=== PATIENT | female | born 1975 | race American Indian/Alaskan Native ===

== ENCOUNTER 2016-08-04 17:32 | Inpatient (IN) | payer BC, OTHER ==
[2016-08-04 17:48] VITALS: BMI 40.3
[2016-08-04 18:05] LABS: ADD MANUAL DIFF? NO
[2016-08-04 18:10] LABS: VENOUS BLOOD GAS BASE EXCESS -3.6 mmol/L (0.0-2.0)
[2016-08-04 18:11] LABS: BASO # 0.02 K/mm3 (0.0-2.0); BASO % 0.2 % (0.0-3.0); EOS # 0.1 (0.0-0.7); EOS % 1.3 % (1.5-5.0); GRAN # 6.65 (1.4-6.5); GRAN % 73.7 % (50.0-68.0); HEMATOCRIT 34.5 % (36.0-48.0); LYMPH # 1.5 (1.2-3.4); LYMPH % 16.2 % (22.0-35.0); MEAN CELL VOLUME 81.6 fL (80.0-105.0); MEAN CORPUSCULAR HEMOGLOBIN 26.7 pg (25.0-35.0); MEAN CORPUSCULAR HGB CONC 32.8 g/dl (31.0-37.0); MEAN PLATELET VOLUME 10.9 fl (7.0-11.0); MONO # 0.8 (0.1-0.6); MONO % 8.6 % (1.0-6.0); PLATELET COUNT 324 10^3/uL (120.0-450.0); RED CELL DISTRIBUTION WIDTH 14.9 % (11.5-14.5)
[2016-08-04] MEDS ORDERED: Ipratropium 0.02% Inhal Soln (0.5 mg/2.5 ml) UD IH STA (18:15)
[2016-08-04] MEDS ORDERED: Levalbuterol 1.25 MG/3 ML Inhal Soln UD IH STA (18:15)
[2016-08-04] MEDS ORDERED: guaiFENesin 200 mg/10 ml Syrup UD PO STA (18:15)
[2016-08-04] MEDS ORDERED: Sodium Chloride 0.9% 1,000 ML IV STA (18:16)
--- NOTE | 2016-08-04 18:37 | ED PDOC ---
Arrival/HPI - General Chief Complaint: Weakness/Neurological Deficit Time Seen by Provider: 08/04/16 17:33 Historian: Patient - History of Present Illness Narrative History of Present Illness (Text): 08/04/16 18:04 A 41 year old female, whose past medical history includes asthma, hypertension and diabetes is brought in to the emergency department by EMS because of a fever. Patient was at PMD's office and was given Tylenol, Solu-medrol 40 mg IM and sent to the emergency department for further evaluation. Patient reports she had two root canals eight days ago and the next day had a fever of 103. Patient was given Ibuprofen and Amoxicillin by dentist. However, these medications did not alleviate her fever. Patient reports she has a cough, headache, dizziness, vomiting (yellow), shortness of breath, and chest pain but denies diarrhea, dysuria or any other complaints at this time. PMD: Dr. Ta ([place]) Time/Duration: 1 week Symptom Onset: Sudden Symptom Course: Unchanged Activities at Onset: Rest Modifying Factors (Text): Tylenol did not help Context: Other (doctor's office) Associated Symptoms (Text): fever, cough, shortness of breath, vomiting, headache, dizziness Past Medical History - Provider Review Nursing Documentation Reviewed: Yes - Infectious Disease Hx of Infectious Diseases: None - Tetanus Immunization Tetanus Immunization: Unknown - Cardiac Hx Hypertension: Yes - Pulmonary Hx Asthma: Yes - Endocrine/Metabolic Hx Diabetes Mellitus Type 2: Yes - Psychiatric Hx Substance Use: No - Past Surgical History Past Surgical History: No Previous - Suicidal Assessment Feels Threatened In Home Enviroment: No Family/Social History - Physician Review Nursing Documentation Reviewed: Yes Family/Social History: No Known Family HX Smoking Status: Never Smoked Hx Alcohol Use: No Hx Substance Use: No Hx Substance Use Treatment: No Allergies/Home Meds Allergies/Adverse Reactions: Allergies No Known Allergies Allergy (Verified 08/04/16 17:48) Home Medications: Home Meds Medication Instructions Recorded Confirmed Amoxicillin/Clavulanate Pota 1 tab PO DAILY 08/12/14 08/12/14 [Augmentin 875 mg-125 mg] Insulin Aspart Mix [novolog Mix 1 unit SC TID 08/12/14 08/12/14 70/30] Insulin Glargine,Hum.rec.anlog 1 unit SC DAILY 08/12/14 08/12/14 [Lantus] Review of Systems - Physician Review All systems were reviewed & negative as marked: Yes - Review of Systems Constitutional: Fevers Respiratory: SOB, Cough Cardiovascular: Chest Pain Gastrointestinal: Vomiting. absent: Diarrhea Genitourinary Female: absent: Dysuria Skin: absent: Rash Neurological: Headache, Dizziness Physical Exam Vital Signs Reviewed: Yes Vital Signs Temp Pulse Resp BP Pulse Ox 08/04/16 22:25 99.3 F 08/04/16 20:14 85 24 157/88 H 95 08/04/16 18:18 100.9 F H 86 16 178/93 H 100 08/04/16 18:01 100.9 F H 87 18 179/101 H 100 Temperature: Febrile Blood Pressure: Hypertensive Pulse: Regular Respiratory Rate: Normal Appearance: Positive for: Well-Appearing, Non-Toxic, Comfortable Pain Distress: None Mental Status: Positive for: Alert and Oriented X 3 - Systems Exam Head: Present: Atraumatic, Normocephalic Pupils: Present: PERRL Conjunctiva: Present: Normal Mouth: Present: Moist Mucous Membranes Pharnyx: Present: Normal. No: ERYTHEMA, EXUDATE Neck: Present: Normal Range of Motion. No: Meningeal Signs Respiratory/Chest: Present: Rales (bibasilar R > L lungs). No: Respiratory Distress, Wheezes Cardiovascular: Present: Regular Rate and Rhythm, Normal S1, S2. No: Murmurs Abdomen: Present: Normal Bowel Sounds. No: Tenderness, Distention, Peritoneal Signs Upper Extremity: Present: Normal Inspection. No: Cyanosis, Edema Lower Extremity: Present: Normal Inspection. No: Edema Neurological: Present: GCS=15, CN II-XII Intact, Speech Normal Skin: Present: Warm, Dry, Normal Color. No: Rashes Psychiatric: Present: Alert, Oriented x 3, Normal Insight, Normal Concentration Medical Decision Making ED Course and Treatment: 08/04/16 18:34 Impression: 41 year old female with fever, weakness and chest pain. Differential Diagnosis include but are not limited to: PNA vs. viral etiology vs. endocarditis vs. PE Plan: -- EKG -- Chest Xray -- Urinalysis -- Labs -- Atrovent, Pepcid, Robitussin, Solu-Medrol, IV fluids, Xopenex -- Reassess and disposition Prior Visits: Notes and results from previous visits were reviewed. On 08/12/14 patient came in complaining of sore throat and earache discomfort. Patient's diagnosis was tonsillitis, otitis media and prescribed to take Acetaminophen, Zithromax Z-deja and to follow up with doctor. Progress Notes: EKG: Ordered, reviewed, and independently interpreted the EKG. Rate : 90 BPM Rhythm : NSR Interpretation : Left axis deviation; normal intervals; normal axis; no ST/T changes Comparison : No previous EKG for comparison. Chest Xray: Possible Right lower lobe infiltrate. 08/04/16 22:[address] results: IMPRESSION: 1. Moderate right lower lobe infiltrate with areas of focal consolidation consistent with pneumonia. There is also mild patchy infiltrate in the right middle lobe and left lower lobe consistent with additional areas of pneumonia. 2. Borderline mediastinal nodes which are nonspecific but may be reactive. 3. Lap band in position. 4. Cholelithiasis. 5. Motion artifact with degradation of peripheral pulmonary artery imaging. No gross central pulmonary embolism is identified. Peripheral emboli are difficult to entirely exclude. Patient's findings are consistent with pneumonia; she was already on amoxicillin outpatient, so has failed therapy. Given multilobar, will treat with vanco and add zosyn for some anaerobic coverage given dental procedure and add levaquin for possible atypical coverage. Her lactic acid was normal and hemodynamically stable with only 1/4 SIRS criteria so does not fit code sepsis criteria. 08/04/16 23:01 Patient is insured and may be admitted to on-call physician, Dr. Rodríguez; he is being covered by Dr. Gibson, whom we have not been able to reach despite multiple calls. Per answering service, they tried calling home and cell and unable to reach - will admit to the hospitalist service; discussed with Dr. Dominguez. - Lab Interpretations Lab Results: 08/04/16 18:00 08/04/16 18:41 Lab Results 08/04/16 18:41: PT 10.4, INR 0.96, APTT 27.4, D-Dimer, Quantitative 0.78 H, Sodium 136, Potassium 4.5, Chloride 107, Carbon Dioxide 22, Anion Gap 12, BUN 17 , Creatinine 1.2, Est GFR ( Amer) > 60, Est GFR (Non-Af Amer) 50, Random Glucose 191 H, Calcium 8.7, Magnesium 1.8, Total Bilirubin 0.5, AST 29, ALT 51, Alkaline Phosphatase 126, Lactate Dehydrogenase 577, Total Creatine Kinase 214, Troponin I < 0.01, NT-Pro-B Natriuret Pep 340, Total Protein 6.7, Albumin 2.9 L , Globulin 3.8, Albumin/Globulin Ratio 0.8 L, Lipase 178, Influenza Typ A,B (EIA ) Negative for flu a/b 08/04/16 18:40: Urine Color Yellow, Urine Appearance Clear, Urine pH 6.0, Ur Specific Chase 1.025, Urine Protein >=300 H, Urine Glucose (UA) 250 H, Urine Ketones Negative, Urine Blood Moderate H, Urine Nitrate Negative, Urine Bilirubin Negative, Urine Urobilinogen 0.2, Ur Leukocyte Esterase Negative, Urine RBC 1 - 3, Urine WBC 1 - 3, Ur Epithelial Cells 10 - 12, Urine HCG, Qual Negative, Ur L.pneumophila Ag Negative 08/04/16 18:05: pO2 51, VBG pH 7.30 L, VBG pCO2 47.0, VBG HCO3 23.1, VBG Total CO2 24.5, VBG O2 Sat (Calc) 87.8 H, VBG Base Excess -3.6 L, VBG Potassium 5.0, Glucose 201 H, Lactate 1.0, FiO2 21.0, Sodium 137.0, Chloride 108.0 H, Venous Blood Potassium 5.0 08/04/16 18:00: WBC 9.0, RBC 4.23, Hgb 11.3 L, Hct 34.5 L, MCV 81.6, MCH 26.7, MCHC 32.8, RDW 14.9 H, Plt Count 324, MPV 10.9, Gran % 73.7 H, Lymph % (Auto) 16.2 L, Mcclain % (Auto) 8.6 H, Eos % (Auto) 1.3 L, Baso % (Auto) 0.2, Gran # 6.65 H, Lymph # 1.5, Mcclain # 0.8 H, Eos # 0.1, Baso # 0.02 I have reviewed the lab results: Yes - RAD Interpretation Radiology Orders: 08/04/16 18:13 CHEST PORTABLE [RAD] Stat 08/04/16 19:13 ANGIO CHEST PE PROTOCOL [CT] Stat - EKG Interpretation Interpreted by ED Physician: Yes Type: 12 lead EKG - Medication Orders Current Medication Orders: Levofloxacin/Dextrose (Levaquin 750mg) 150 mls @ 100 mls/hr IVPB STAT STA Stop: 08/04/16 23:59 Vancomycin HCl (Vancomycin 1gm) 250 mls @ 133.333 mls/hr IVPB STAT STA PRN Reason: Protocol Stop: 08/05/16 00:23 Discontinued Medications Famotidine (Pepcid) 20 mg IVP STAT STA Stop: 08/04/16 18:16 Last Admin: 08/04/16 18:57 Dose: 20 MG IVP Administration Document 08/04/16 18:57 [facility] (Rec: 08/04/16 18:57 [email or web address]) Charges for Administration # of IVP Administrations 1 Guaifenesin (Robitussin) 400 mg PO ONCE STA Stop: 08/04/16 18:16 Last Admin: 08/04/16 18:56 Dose: 400 MG Sodium Chloride (Sodium Chloride 0.9%) 1,000 mls @ 999 mls/hr IV .Q1H1M STA Stop: 08/04/16 19:16 Last Admin: 08/04/16 18:33 Dose: 999 MLS/HR eMAR Start Stop Document 08/04/16 18:33 LM ([facility]04[facility]16 [id number] Intravenous Solution Start Date 08/04/16 Start Time 18:10 End Date 08/04/16 End time 19:10 Total Infusion Time 60 Ceftriaxone Sodium (Rocephin 1 Gram Ivpb) 100 mls @ 200 mls/hr IV ONCE STA PRN Reason: Protocol Stop: 08/04/16 21:45 Last Admin: 08/04/16 21:53 Dose: 200 MLS/HR eMAR Start Stop Document 08/04/16 21:53 MR (Rec: 08/04/16 21:53 [id number]) Intravenous Solution Start Date 08/04/16 Start Time 21:53 End Date 08/04/16 End time 22:23 Total Infusion Time 30 Piperacillin Sod/Tazobactam Sod (Zosyn 3.375 In Ns 100ml) 100 mls @ 200 mls/hr IVPB STAT STA PRN Reason: Protocol Stop: 08/04/16 22:59 Iodixanol (Visipaque 320 Mg/Ml 100 Ml) Confirm Administered Dose 100 ml IV .STK- MED ONE Stop: 08/04/16 20:20 Ipratropium [place] (Atrovent) 0.5 mg IH STAT STA Stop: 08/04/16 18:16 Last Admin: 08/04/16 18:57 Dose: 0.5 MG Levalbuterol HCl (Xopenex) 1.25 mg IH STAT STA Stop: 08/04/16 18:16 Last Admin: 08/04/16 18:57 Dose: 1.25 MG Methylprednisolone (Solu-Medrol) 125 mg IVP STAT STA Stop: 08/04/16 18:15 Last Admin: 08/04/16 18:57 Dose: 125 MG IVP Administration Document 08/04/16 18:57 [facility] (Rec: 08/04/16 18:57 [email or web address]) Charges for Administration # of IVP Administrations 1 - Scribe Statement The provider has reviewed the documentation as recorded by the Scribe Rafael Joiner All medical record entries made by the Scribe were at my direction and personally dictated by me. I have reviewed the chart and agree that the record accurately reflects my personal performance of the history, physical exam, medical decision making, and the department course for this patient. I have also personally directed, reviewed, and agree with the discharge instructions and disposition. Disposition/Present on Arrival - Present on Arrival Any Indicators Present on Arrival: No History of DVT/PE: No History of Uncontrolled Diabetes: No Urinary Catheter: No History of Decub. Ulcer: No History Surgical Site Infection Following: None - Disposition Have Diagnosis and Disposition been Completed?: Yes Diagnosis: Pneumonia Disposition: HOSPITALIZED Disposition Time: 22:30 Patient Plan: Admission Condition: FAIR
[2016-08-04 18:57] LABS: ALB/GLOB RATIO 0.8 (1.1-1.8); ALKALINE PHOSPHATASE 126 U/L (38-133); ALT/SGPT 51 U/L (7-56); AST/SGOT 29 U/L (15-39); BILIRUBIN,TOTAL 0.5 mg/dL (0.2-1.3); BLOOD UREA NITROGEN 17 mg/dL (7-21); CALCIUM 8.7 mg/dL (8.4-10.5); CARBON DIOXIDE 22 mmol/L (21-33); CHLORIDE 107 mmol/L (98-107); GFR AFRICAN-AMERICAN > 60; GLUCOSE,RANDOM 191 mg/dL (70-110); LIPASE 178 U/L (23-300); MAGNESIUM 1.8 mg/dL (1.7-2.2); POTASSIUM 4.5 mmol/L (3.6-5.0); SODIUM 136 mmol/L (132-148); TOTAL PROTEIN 6.7 g/dL (5.8-8.3)
[2016-08-04 19:05] LABS: URINE BILIRUBIN NEGATIVE (NEGATIVE); URINE BLOOD MODERATE (NEGATIVE); URINE GLUCOSE (UA) 250 mg/dL (NEGATIVE); URINE KETONE NEGATIVE (NEGATIVE); URINE LEUKOCYTE ESTERASE NEGATIVE Leu/uL (NEGATIVE); URINE PROTEIN >=300 mg/dL (<30 mg/dL); URINE UROBILINOGEN 0.2 E.U./dL (<1 E.U./dL)
[2016-08-04 19:07] LABS: INR 0.96 (0.93-1.08); PARTIAL THROMBOPLASTIN TIME 27.4 Seconds (23.7-30.8)
[2016-08-04 19:09] LABS: D DIMER 0.78 mg/L FEU (0-0.50)
[2016-08-04 19:09] LABS: URINE APPEARANCE CLEAR (CLEAR); URINE COLOR YELLOW (YELLOW)
[2016-08-04 19:12] LABS: TROPONIN I < 0.01 ng/mL
[2016-08-04] MEDS ORDERED: Iodixanol 320 MG/ML 100 ML BOTTLE IV ONE (20:19)
[2016-08-04] MEDS ORDERED: cefTRIAXone 1 gm 100 ML IV STA (21:16)
[2016-08-04] MEDS ORDERED: Azithromycin 500MG/NS 250ml 250 ML IVPB STA (21:16)
[2016-08-04] MEDS ORDERED: Piperacillin/Tazobact 3.375 gm 100 ML IVPB STA (22:30)
[2016-08-04] MEDS ORDERED: Vancomycin 1gm in NS 250ml 250 ML IVPB STA (22:31)
--- NOTE | 2016-08-05 03:07 | CP.PCM.HP ---
<Tamir Nathan - Last Filed: 08/05/16 02:53> History of Present Illness - History of Present Illness History of Present Illness: 41 F with PMHx of Asthma, HTN, and DM2 presents to [facility] with complaints of a subjective fever, sob, chest discomfort, and lethargy. Pt reports that she was recently at her PCP's office at [facility], not feeling well s/p recent dental procedures. Pt recently had two root canals approximately 8 days ago, was given amoxicillin and ibuprofen by dentist, however reported feeling feverish the following day. Pt reports of having a fever of 103. Pt decided to go to PCP on account of not feeling well. Pt was given tylenol 1000mg and solumedrol 40mg IM and suggested to be evaluated at [facility]. Pt admits to malaise , fever, cough, SOB, headache, chest discomfort described as a tightness and n/ v. Pt denied neruological deficits, weakness, loc, dizziness, blurry vision, sore throat, palpitations, abdominal pains, diarrhea, constipations, rash, dysuria, hematuria, or hematochezia. PMHx: Asthma, HTN, and DM2 PSHx: and gastric bypass SHx: Denied tobacco/etoh/illicit drug abuse. LMP 07/18/16. lives with family Famhx: Noncontributory Meds; Mar reviewed Allergies: NKDA PMD: Dr. Ta ([place]) Present on Admission - Present on Admission Any Indicators Present on Admission: No History of DVT/PE: No History of Uncontrolled Diabetes: No Urinary Catheter: No Decubitus Ulcer Present: No Review of Systems - Review of Systems Review of Systems: as per HPI otherwise negative Past Patient History - Infectious Disease Hx of Infectious Diseases: None - Tetanus Immunizations Tetanus Immunization: Unknown - Past Social History Smoking Status: Never Smoked - CARDIAC Hx Hypertension: Yes - PULMONARY Hx Asthma: Yes - NEUROLOGICAL Hx Neurological Disorder: No - HEENT Hx HEENT Problems: Yes 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 - RENAL Hx Chronic Kidney Disease: No - ENDOCRINE/METABOLIC Hx Diabetes Mellitus Type 2: Yes - HEMATOLOGICAL/ONCOLOGICAL Hx Blood Disorders: No - INTEGUMENTARY Hx Dermatological Problems: No - MUSCULOSKELETAL/RHEUMATOLOGICAL Hx Falls: No - GASTROINTESTINAL Hx Gastrointestinal Disorders: No - GENITOURINARY/GYNECOLOGICAL Hx Genitourinary Disorders: No - PSYCHIATRIC Hx Substance Use: No - SURGICAL HISTORY Hx Surgeries: Yes Hx Gastric Bypass Surgery: Yes Other/Comment: c section Meds Allergies/Adverse Reactions: Allergies Allergy/AdvReac Type Severity Reaction Status Date / Time No Known Allergies Allergy Verified 08/04/16 17:48 Physical Exam - Constitutional Appears: Non-toxic, No Acute Distress - Head Exam Head Exam: ATRAUMATIC, NORMAL INSPECTION, NORMOCEPHALIC - Eye Exam Eye Exam: EOMI, Normal appearance, PERRL Pupil Exam: NORMAL ACCOMODATION, PERRL - ENT Exam ENT Exam: Mucous Membranes Moist, Normal Exam - Expanded ENT Exam Expanded Throat exam: absent: Tonsillar Erythema, Tonsillar Exudate - Neck Exam Neck exam: Positive for: Normal Inspection - Respiratory Exam Respiratory Exam: Decreased Breath Sounds, Rales - Cardiovascular Exam Cardiovascular Exam: REGULAR RHYTHM, +S1, +S2 - GI/Abdominal Exam GI & Abdominal Exam: Normal Bowel Sounds, Soft. absent: Tenderness - Extremities Exam Extremities exam: Positive for: normal inspection - Neurological Exam Neurological exam: Alert, CN II-XII Intact, Normal Gait, Oriented x3, Reflexes Normal - Psychiatric Exam Psychiatric exam: Normal Affect, Normal Mood - Skin Skin Exam: Dry, Intact, Normal Color, Warm Results - Vital Signs Recent Vital Signs: Last Vital Signs Temp 98.1 F 08/04/16 23:04 Pulse 78 08/05/16 02:06 Resp 20 08/04/16 23:04 BP 203/117 H 08/05/16 02:06 Pulse Ox 99 08/05/16 02:06 - Labs Result Diagrams: 08/04/16 18:00 08/04/16 18:41 Assessment & Plan - Assessment and Plan (Free Text) Assessment: 41 F with PMHx of Asthma, HTN, and DM2 presents to [facility] with complaints of a subjective fever, sob, and lethargy. Pt found to have RLL PNA, failed outpt treatment with amoxicillin, admitted to remote tele. 1. CAP - CT Chest: Moderate right lower lobe infiltrate with areas of focal consolidation consistent with pneumonia. There is also mild patchy infiltrate in the right middle lobe and left lower lobe consistent with additional areas of pneumonia. No gross central pulmonary embolism is identified. - CXR: RLL infiltrate - febrile on admission - Vancomycin and zosyn - IV solumedrol 30mg q12, robitussin, nebs - ID consulted, Dr. Love - Lora consulted, Dr. Farooq 2. HTN - Clonidine 0.2mg sta, will reassess - EKG: NSR @[address] changes - Continue to monitor 3. DM2 - Consistent carb diet - Accuchecks - ISS 4. GI ppx 5. DVT ppx Seen reviewed and discussed with attending <Naina Dominguez - Last Filed: 08/05/16 04:16> Results - Vital Signs Recent Vital Signs: Last Vital Signs Temp 98.1 F 08/04/16 23:04 Pulse 78 08/05/16 02:30 Resp 20 08/04/16 23:04 BP 203/117 H 08/05/16 02:06 Pulse Ox 99 08/05/16 02:06 - Labs Result Diagrams: 08/04/16 18:00 08/04/16 18:41 Attending/Attestation - Attestation I have personally seen and examined this patient.: Yes I have fully participated in the care of the patient.: Yes I have reviewed all pertinent clinical information: Yes Notes (Text): 08/05/16 03:43
[2016-08-05] MEDS: Piperacillin/Tazobact 3.375 gm 100 ML IVPB SCH ×2 (05:57→12:14)
[2016-08-05 07:30] LABS: ADD MANUAL DIFF? NO
[2016-08-05 07:35] LABS: BASO # 0.01 K/mm3 (0.0-2.0); BASO % 0.1 % (0.0-3.0); GRAN # 6.97 (1.4-6.5); GRAN % 87.7 % (50.0-68.0); HEMATOCRIT 34.3 % (36.0-48.0); LYMPH # 0.8 (1.2-3.4); LYMPH % 10.6 % (22.0-35.0); MEAN CELL VOLUME 80.9 fL (80.0-105.0); MEAN CORPUSCULAR HEMOGLOBIN 25.9 pg (25.0-35.0); MEAN CORPUSCULAR HGB CONC 32.1 g/dl (31.0-37.0); MEAN PLATELET VOLUME 11.2 fl (7.0-11.0); MONO # 0.1 (0.1-0.6); MONO % 1.6 % (1.0-6.0); PLATELET COUNT 314 10^3/uL (120.0-450.0); RED CELL DISTRIBUTION WIDTH 14.8 % (11.5-14.5)
[2016-08-05] MEDS: Insulin Reg-HIGH-Coverage SC SCH ×5 (08:15→21:26)
--- NOTE | 2016-08-05 08:26 | CT ---
PROCEDURE: CT Chest with contrast (Pulmonary Angiogram) HISTORY: cp, fever - r/o PE COMPARISON: None available. TECHNIQUE: Axial computed tomography images were obtained of the chest in the pulmonary arterial phase of enhancement. Coronal and sagittal reformatted images were created and reviewed. Intravenous contrast dose: Visipaque 321 100 mL Radiation dose: Total exam DLP = 824 mGy-cm. This CT exam was performed using one or more of the following dose reduction techniques: Automated exposure control, adjustment of the mA and/or kV according to patient size, and/or use of iterative reconstruction technique. FINDINGS: PULMONARY ARTERIES: . No central pulmonary embolism. The exam is limited regarding assessing for far peripheral subsegmental pulmonary arterial tiny emboli in this patient with large body habitus AORTA: No acute findings. No thoracic aortic aneurysm. LUNGS: Right lower lobe posterior basal consolidation. More patchy consolidation/infiltrates also in the right lower lobe. Smaller dependent left lower lobe patchy infiltrates and/or lessen the dependent atelectatic changes PLEURAL SPACES: Unremarkable. No effusion or pneuomothorax. HEART: Unremarkable. No cardiomegaly. No significant pericardial effusion. LYMPH NODES: No lymphadenopathy. BONES, CHEST WALL: Unremarkable. No fracture or destructive lesion OTHER FINDINGS: Gallstone and gallbladder. Apparent Lap band- bariatric treatment. 1 cm low-density adrenal limb nodularity- a small incidental left adrenal cyst enter versus a benign adenoma is most likely. IMPRESSION: No central pulmonary emboli. Bibasilar infiltrates right more extensive than left. Both affect each lower lobe. Follow-up recommended Gallstone in gallbladder. No gross dilated ducts. Incidental 1 cm left adrenal limb benign-appearing nodule Lap band
[2016-08-05] MEDS: Enoxaparin 40 mg Syringe SC SCH (09:05)
[2016-08-05] MEDS: Linezolid 600 mg in D5W 300 ml 300 ML IVPB SCH ×2 (09:05→21:27)
[2016-08-05 09:06] LABS: ALB/GLOB RATIO 0.7 (1.1-1.8); ALKALINE PHOSPHATASE 129 U/L (38-133); ALT/SGPT 34 U/L (7-56); AST/SGOT 29 U/L (15-39); BILIRUBIN,TOTAL 0.4 mg/dL (0.2-1.3); BLOOD UREA NITROGEN 18 mg/dL (7-21); CALCIUM 8.4 mg/dL (8.4-10.5); CARBON DIOXIDE 19 mmol/L (21-33); CHLORIDE 107 mmol/L (95-110); GFR AFRICAN-AMERICAN > 60; POTASSIUM 5.5 mmol/L (3.6-5.0); SODIUM 135 mmol/L (132-148)
--- NOTE | 2016-08-05 09:06 | HP ---
I saw the patient this morning in her room, resting in bed. She has a little shortness of breath and she is coughing at this time. She comes in with a history of being a 41-year-old -[place] f emale who had a week of coughing, congestion, status post root canal, was on antibiotics at home, als o was given Solu-Medrol at home by her doctor, did not get better, got worse with antibiotics and Valerie u-Medrol, came to the Emergency Room. Coughing, congestion and fevers as high as 103. She is also s hort of breath. PAST MEDICAL HISTORY: Asthma, hypertension, diabetes. She had fever, shortness of breath. She looks septic to look at her in bed. FAMILY HISTORY: She has hypertension and diabetes in the family. SOCIAL HISTORY: No smoking, no alcohol, no drugs. ALLERGIES: No known drug allergy. HOME MEDICATIONS: She was on Augmentin, insulin, Edarbi, atenolol. She was given IV antibiotics in the Emergency Room. REVIEW OF SYSTEMS: No change in vision, no change in hearing, no sore throat. No neck pain. She is short of breath. She is coughing up phlegm. It is green and yellow. There is some chest pain from time to time with all the coughing. She had vomited a few times. No diarrhea. No abdominal pain. There is bone pain in her legs and her arms. No rashes. A little bit of headache and dizziness. S he is just not feeling well. PHYSICAL EXAMINATION: VITAL SIGNS: She had a 100.9 temp, 87 pulse, 24 respiratory rate, 179/101 blood pressure. It was as high as 201/120. Now, it is down a little bit. I am going to put her on Catapres. O2 sat 100% on room air. GENERAL: She is lying in bed. She is morbidly obese. She is well appearing, but she is toxic. She is talking to me a little bit better since oxygen is on, alert and oriented x 3. HEENT: Head is atraumatic, normocephalic. Pupils equal, reactive to light and accommodation. Extra ocular muscles are intact. Throat is dry, no erythema. NECK: Supple, no JVD. HEART: Regular rate. LUNGS: Have decreased breath sounds bilaterally. There are some rales on the right worse than left with the congestion. It changes with cough. ABDOMEN: Soft, morbidly obese, nontender, no guarding, no rebound, no CVA tenderness. EXTREMITIES: Have no edema. SKIN: For the most part is intact. Warm and dry. NEUROLOGIC: GCS is 15. Cranial nerves II-XII grossly intact. Normal speech. Alert and oriented x 3, a little bit distressed. She had multiple issues. On chest x-ray, it is possible right lower lobe pneumonia. There is also a CAT scan pending of the chest. She was given numerous IV antibiotics in the Emergency Room from [facility] yn to vancomycin, IV Solu-Medrol, Rocephin, levofloxacin. Right now, she is on Zyvox, Zosyn, Solu-Me drol. I put her on Catapres for the elevated blood pressure. She has an 8 white count, 11 hemoglobin, 34.3 hematocrit with 314 platelets. INR 0.96. Sodium 136, potassium 4.5, BUN 17, creatinine 1.2, GFR is 50, sugar is 191. We will get her on coverage. Calciu m is 8.7, magnesium 1.8, total bili is 0.5, AST is 29, ALT is 51, alk phos 126. Troponin is less connie n 0.01. BNP is 340. Total protein 6.7, albumin is 2.9, lipase is 178. Urine is moderate blood, neg ative for . Negative for flu and legionella. I am waiting for the CAT scan of the chest to come back from the radiologist. There is a consult wit h infectious disease and pulmonary. She is here with probable pneumonia, failed outpatient with Augmentin and steroids from her doctor. She will have her blood pressure watched closely. We will check her labs tomorrow. Hopefully, she w ill improve. The patient is here for pneumonia, elevated temperature, failed outpatient treatment, diabetes, hyper tension. Yaw Rodríguez DO cc: [id number] TT: 08/05/2016 09:05:26 en
[2016-08-05 09:08] LABS: GLUCOSE,RANDOM 327 mg/dL (70-110)
--- NOTE | 2016-08-05 09:28 | CON ---
DATE: 08/05/2016 PULMONARY CONSULTATION Room 364, bed 1. HISTORY OF PRESENT ILLNESS: The patient is a 41-year-old woman who came to the hospital complaining of shortness of breath. She had some chest pain as well. She has a longstanding history of bronchial asthma. The last hospitalization for this condition was 6 years ago. She also has a past history of hypertension , diabetes mellitus type 2, morbid obesity, and section. On further questioning, the patient has no additional complaints at this time. She was seen by dentist recently and had 2 extractions. She was given antibiotics and Advil, but she developed a fever as high as 103. When presenting to the Emergency Room, it was down to 102. She felt warm, diaphoretic, and short of breath. She was wheezing according to her history. PAST HISTORY: As described above. SOCIAL HISTORY: She never smoked. She never used alcohol or drugs. She lives with her child. There is no occupational exposure. There is no travel history. There is no history of a DNR. FAMILY HISTORY: Both parents have asthma. Her one child is free of respiratory conditions. HOME MEDICATIONS: Unclear. She does not recall these, and I cannot find them in the history. ALLERGIES: She has no known allergies. The patient has not been worked up for her sleep apnea. Further questioning will be done once the patient is feeling a bit better, but she is certainly a candidate for SUSHANT evaluation. The patient has had GI surgery. Whether this was a lap band or a partial gastrectomy is not clear. Gastric sleeve is also a possibility, but records are not available yet at this time. REVIEW OF SYSTEMS: Complete review of systems has been done. The patient has peripheral neuropathy. She has nystagmus in her eye. She does not complain of other sequelae of her diabetes mellitus. There are no psychiatric complaints. Her blood pressure remains under control. However, she does have some glaucoma also - the type of which is not clear at this time. She has frequent headaches and back pain. All other systems negative PHYSICAL EXAMINATION: GENERAL: The patient is comfortable at rest in no acute distress. VITAL SIGNS: Stable with a blood pressure of 130/70, heart rate 70, respiratory rate 18. Blood pressure 150/60, pulse ox 100% on room air. HEENT: Normocephalic, atraumatic. Pupils PERRLA. EOMs full. Conjunctivae pink. Mouth moist. Pharynx normal. NECK: Supple. No JVD, no lymphadenopathy, no bruit, no mass. HEART: Regular rhythm, S1, S2 without murmur, gallop, or rub. ABDOMEN: Soft. Bowel sounds normoactive without mass, guarding, or rebound. EXTREMITIES: Reveal no clubbing, cyanosis, or edema. There is no Homans' sign. NEUROLOGIC: Awake, alert, oriented. No particular other abnormalities noted. No localizing signs. LYMPHATICS: Lymphadenopathy is not present in the supraclavicular notch nor in the cervical, inguinal, or axillary areas. No additional physical findings are noted. LABORATORY STUDIES: 1. Chest x-ray. The x-ray shows bilateral basilar infiltrates. There is no significant hyperinflation or flattening of the diaphragms. 2. Laboratory studies: Hematology shows a white count of 9, hemoglobin of 11.3 , hematocrit 34.5, platelet count 324,000. Coagulation is normal. D-dimer is 0.78. Blood gas: pH 7.30, pCO2 of 47, pO2 of 51 showing a respiratory acidosis with hypoxemia. Chemistry studies are normal except for a glucose of 191. BNP was 340, which is normal. Urine shows protein and glucose with moderate amount of blood. 3. EKG: Sinus tach, nonspecific ST-T wave changes. CLINICAL DIAGNOSES AND DIFFERENTIAL: 1. Chronic bronchial asthma. Morbid obesity. 2. Bronchopneumonia (bilateral). 3. Acute bronchospasm 4. Obesity 5. Status post gastrectomy 6. Upper mouth infection. 7. Diabetes mellitus. PLAN: The patient requires vigorous bronchodilator and corticosteroids. She will require broad-spectrum antibiotic coverage. Legionella titer was negative. She has a negative influenza titer as well. She will need to follow this x-ray to complete resolution. She needs to lose weight. I do not know the current status of her gastric bypass surgery. She definitely needs to be treated to evaluate her for obstructive sleep apnea. We hope that she will continue to improve, and we will follow closely. I will review the records and decide on the need for further intervention based on her clinical status. Thank you for asking us to see this patient in pulmonary evaluation. Jad Fraser MD cc: [id number] TT: 08/05/2016 09:27:45 Confirmation # [id number] Dictation # [id number] jn MTDD
--- NOTE | 2016-08-05 09:49 | RAD ---
HISTORY: sob, cp, fever COMPARISON: No prior. FINDINGS: LUNGS: Left hilar and suprahilar bronchovascular markings are slightly increased. Mild asymmetrical pulmonary vascular congestion here is 1 consideration. Top normal variant is another for this patient with a large body habitus -. PLEURA: No significant pleural effusion identified, no pneumothorax apparent. CARDIOVASCULAR: Mild cardiomegaly OSSEOUS STRUCTURES: Thoracic spondylosis VISUALIZED UPPER ABDOMEN: Normal. OTHER FINDINGS: None. IMPRESSION: Nonspecific left suprahilar bronchovascular marking prominence. Asymmetrical pulmonary venous congestion versus asymmetrical left peribronchial inflammatory changes is another. No earle consolidation Cardiomegaly
[2016-08-05] MEDS ORDERED: cefTRIAXone 1 gm 100 ML IVPB SCH (10:00)
[2016-08-05] MEDS ORDERED: Azithromycin 500MG/NS 250ml 250 ML IVPB SCH (10:00)
[2016-08-05] MEDS ORDERED: Vancomycin 1gm in NS 250ml 250 ML IVPB SCH (10:00)
[2016-08-05] MEDS ORDERED: MethylPREDNISolone 40 mg Vial IVP SCH (10:00)
[2016-08-05] MEDS ORDERED: Sod Polystyrene Sulf 15 gm/60 ml Oral Susp PO ONE (11:22)
[2016-08-05] MEDS ORDERED: Insulin Reg-HIGH-Coverage SC SCH (11:30)
[2016-08-05] MEDS ORDERED: Albuterol-Ipratrop 3 mg / 0.5 (3 ml) UD IH SCH (14:00)
[2016-08-05] MEDS: Tiotropium 18 mcg Cap For Inhalation IH SCH (14:29)
--- NOTE | 2016-08-05 17:38 | CP.PCM.CON ---
History of Present Illness - History of Present Illness History of Present Illness: 41 year old female with PMH of HTN, DM, asthma, morbid obesity with BMI 40, S/P gastric bypass surgery came in to [facility] because of fevers, shortness of breath and cough which started about 5 days ago. She started having fevers about 8 days ago after she had 2 root canal surgeries. She took Amoxicillin as prescribed by her dentist but she continued to have fevers. She denies headache or dizziness, no chest pain, no nausea or vomiting, no abdominal pain, no diarrhea, no dysuria. In the ED CT chest showed infiltrates in both bases. Infectious diseases consult is requested to further evaluate and manage. Review of Systems - Review of Systems All systems: reviewed and no additional remarkable complaints except (as per HPI ) Past Patient History - Infectious Disease Hx of Infectious Diseases: None - Tetanus Immunizations Tetanus Immunization: Unknown - Past Social History Smoking Status: Never Smoked - CARDIAC Hx Hypertension: Yes - PULMONARY Hx Asthma: Yes - NEUROLOGICAL Hx Neurological Disorder: No - HEENT Hx HEENT Problems: Yes 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 - RENAL Hx Chronic Kidney Disease: No - ENDOCRINE/METABOLIC Hx Diabetes Mellitus Type 2: Yes - HEMATOLOGICAL/ONCOLOGICAL Hx Blood Disorders: No - INTEGUMENTARY Hx Dermatological Problems: No - MUSCULOSKELETAL/RHEUMATOLOGICAL Hx Falls: No - GASTROINTESTINAL Hx Gastrointestinal Disorders: No - GENITOURINARY/GYNECOLOGICAL Hx Genitourinary Disorders: No - PSYCHIATRIC Hx Substance Use: No - SURGICAL HISTORY Hx Surgeries: Yes Hx Gastric Bypass Surgery: Yes Other/Comment: c section Meds Allergies/Adverse Reactions: Allergies Allergy/AdvReac Type Severity Reaction Status Date / Time No Known Allergies Allergy Verified 08/04/16 17:48 - Medications Medications: Current Medications Acetaminophen (Tylenol 325mg Tab) 650 mg PO Q4H PRN PRN Reason: Fever >100.4 F Enoxaparin Sodium (Lovenox) 40 mg SC DAILY DANNY PRN Reason: Protocol Guaifenesin/Dextromethorphan (Robitussin Dm) 10 ml PO Q4H PRN PRN Reason: Cough Piperacillin Sod/Tazobactam Sod (Zosyn 3.375 In Ns 100ml) 100 mls @ 200 mls/hr IVPB Q6 DANNY PRN Reason: Protocol Stop: 08/05/16 12:29 Last Admin: 08/05/16 05:57 Dose: 200 mls/hr Vancomycin HCl (Vancomycin 1gm) 250 mls @ 167 mls/hr IVPB DAILY DANNY PRN Reason: Protocol Insulin Human Regular (Humulin R High) 0 units SC ACHS DANNY PRN Reason: Protocol Methylprednisolone (Solu-Medrol) 30 mg IVP Q12 DANNY Pantoprazole Sodium (Protonix Inj) 40 mg IVP DAILY DANNY Physical Exam - Constitutional Appears: Non-toxic, No Acute Distress - Head Exam Head Exam: NORMAL INSPECTION - ENT Exam ENT Exam: Mucous Membranes Moist - Neck Exam Neck exam: Negative for: Lymphadenopathy, Meningismus - Respiratory Exam Respiratory Exam: Decreased Breath Sounds - Cardiovascular Exam Cardiovascular Exam: +S1, +S2 - GI/Abdominal Exam GI & Abdominal Exam: Soft. absent: Tenderness Results - Vital Signs Recent Vital Signs: Last Vital Signs Temp 98.1 F 08/04/16 23:04 Pulse 78 08/05/16 02:30 Resp 20 08/04/16 23:04 BP 203/117 H 08/05/16 02:06 Pulse Ox 99 08/05/16 02:06 - Labs Result Diagrams: 08/05/16 07:00 08/05/16 07:00 Assessment & Plan - Assessment and Plan (Free Text) Plan: Assessment Probable healthcare-associated pneumonia, both lower lobes S/P root canal surgery HTN DM asthma morbid obesity with BMI 40 S/P gastric bypass surgery Plan Started patient on Zyvox and Cefepime pending blood, sputum cx, PCT Will monitor clinical response
[2016-08-05] MEDS: Insulin Lispro (humaLOG) MIX 75/25(10 ml) SC SCH (18:06)
--- NOTE | 2016-08-05 18:06 | CARD ---
APPROVED REPORT EKG Measurement Heart [id number] <Conclusion> Normal sinus rhythm Left axis deviation Minimal voltage criteria for LVH, may be normal variant Possible Anterior infarct, age undetermined Abnormal ECG
[2016-08-05] MEDS: Arformoterol 15 mcg/2 ml Inh Sol IH SCH (19:20)
[2016-08-05] MEDS: Budesonide 0.5 mg/2 ml Inhal Susp UD IH SCH (19:20)
[2016-08-05] MEDS: Cefepime 1gm in NS 100ml 100 ML IVPB SCH (21:26)
[2016-08-05] MEDS: guaiFENesin DM 200 mg-20 mg/10 ml UD PO PRN (22:35)
[2016-08-06] MEDS: Budesonide 0.5 mg/2 ml Inhal Susp UD IH SCH ×2 (07:45→19:30)
[2016-08-06] MEDS: Arformoterol 15 mcg/2 ml Inh Sol IH SCH ×2 (07:45→19:30)
[2016-08-06 07:49] LABS: ADD MANUAL DIFF? NO
[2016-08-06 07:52] LABS: BASO # 0.01 K/mm3 (0.0-2.0); BASO % 0.1 % (0.0-3.0); GRAN # 14.61 (1.4-6.5); GRAN % 91.2 % (50.0-68.0); HEMATOCRIT 32.1 % (36.0-48.0); LYMPH % 6.5 % (22.0-35.0); MEAN CELL VOLUME 80.7 fL (80.0-105.0); MEAN CORPUSCULAR HEMOGLOBIN 26.1 pg (25.0-35.0); MEAN CORPUSCULAR HGB CONC 32.4 g/dl (31.0-37.0); MEAN PLATELET VOLUME 10.9 fl (7.0-11.0); MONO # 0.4 (0.1-0.6); MONO % 2.2 % (1.0-6.0); PLATELET COUNT 297 10^3/uL (120.0-450.0); RED CELL DISTRIBUTION WIDTH 14.8 % (11.5-14.5)
--- NOTE | 2016-08-06 08:18 | PN ---
DATE: 08/06/2016 I saw her resting comfortably this morning. She slept fairly well. She is still coughing and bringi ng up a lot of phlegm, also quite weak. She did stand and sit out of bed for a short time yesterday, but still short of breath on oxygen. PHYSICAL EXAMINATION: VITAL SIGNS: She has a 97.9 temp, 79 pulse, 157/83 blood pressure, 19 respiratory rate, and 97% O2 s at on room air. Blood pressure did go up to 178/100. HEAD: Atraumatic, normocephalic. HEART: Regular rate. LUNGS: Decreased breath sounds bilaterally, but fairly clear, maybe mild congestion, changes with co ugh. ABDOMEN: Morbidly obese, soft, nontender, no guarding, no rebound. EXTREMITIES: Trace edema. She is currently on Brovana, Catapres, insulin, Lovenox, Maxipime, Medrol, Protonix, Pulmicort, Robit ussin, Spiriva, Toradol, Tylenol and Zyvox IV. She has a 16,000 white count, 10.4 hemoglobin, 32.1 hematocrit with 297 platelets. She has a 135 sod ium, potassium is 5.5. Sugars have been 191 and 327. It could be from the steroids. Total bili is 0.4, AST is 29, ALT is 34, alkaline phosphatase 129, total protein is 7. She is being seen by infectious disease and pulmonology. She is here for pneumonia, status post root canal surgery, hypertension, diabetes, asthma, morbid obesity, status post gastric bypass surgery, o n Zyvox, cefepime, pulmonary toilet. I am going to increase her medications for her blood pressure. We are going to check her labs tomorrow. I encouraged her to do physical therapy, out of bed to [facility]. She is still quite weak. She is here for physical therapy. Yaw Rodríguez DO cc: [id number] TT: 08/06/2016 08:18:14 Confirmation # [id number] Dictation # [id number] en
[2016-08-06 08:31] LABS: ALB/GLOB RATIO 0.8 (1.1-1.8); BILIRUBIN,TOTAL 0.3 mg/dL (0.2-1.3); CALCIUM 8.1 mg/dL (8.4-10.5); POTASSIUM 4.9 mmol/L (3.6-5.0); TOTAL PROTEIN 6.6 g/dL (5.8-8.3)
[2016-08-06] MEDS: Insulin Reg-HIGH-Coverage SC SCH ×4 (08:31→21:23)
[2016-08-06] MEDS ORDERED: MethylPREDNISolone 40 mg Vial IM STA (08:58)
[2016-08-06] MEDS: Linezolid 600 mg in D5W 300 ml 300 ML IVPB SCH ×2 (09:13→22:21)
[2016-08-06] MEDS: Cefepime 1gm in NS 100ml 100 ML IVPB SCH ×2 (09:14→21:11)
[2016-08-06] MEDS: Insulin Lispro (humaLOG) MIX 75/25(10 ml) SC SCH ×3 (09:15→17:33)
[2016-08-06] MEDS: Tiotropium 18 mcg Cap For Inhalation IH SCH (09:15)
[2016-08-06] MEDS: Enoxaparin 40 mg Syringe SC SCH (09:18)
--- NOTE | 2016-08-06 09:30 | PN ---
DATE: 08/06/2016 LOCATION: 364, bed 1. SUBJECTIVE: Over the night, the patient had multiple episodes of waking up from wheezing. She states that they gave her additional medication which helped her. This morning, she still complains of generalized weakness with associated wheezing as well. She is expectorating a darker phlegm today, but appears more comfortable than yesterday. Her only problem is exhaustion from the continued respiratory insufficiency. No additional history has been obtained since yesterday. PHYSICAL EXAMINATION: GENERAL: She remains afebrile. VITAL SIGNS: Blood pressure 130/70, heart rate 86, respiratory rate 18, pulse ox is 100% on room air. HEENT: Normocephalic, atraumatic. Eyes: PERRLA. EOMs full. Conjunctivae pink. NECK: Supple. No JVD, no lymphadenopathy, no bruit or mass. CARDIOVASCULAR: Regular rhythm, S1, S2 without murmur, gallop or rub. Heart sounds are distant. CHEST: Scattered rhonchi and wheezes throughout both lung morris. EXTREMITIES: Reveal no clubbing, cyanosis or edema. NEUROLOGIC: Shows no focal findings. LYMPHATICS: Reveal no lymphadenopathy. A followup x-ray will be required regarding improvement of infiltrates. No additional blood work is available yet at this time. ACUTE PROBLEMS. 1. Acute bronchospasm. 2. Bronchopneumonia, which is bilateral. 3. Asthma. 4. Morbid obesity. 5. Status post gastrectomy. 6. No evidence of sleep apnea. GENERAL PROBLEMS: 1. Status post infection from dental extraction. 2. Diabetes mellitus. PLAN: We will continue to give her inhaled bronchodilators and corticosteroids. The corticosteroids must be increased slightly so that the patient improves from her as fast as previously thought. She still needs further evaluation and treatment with aggressive therapy, chest physical therapy /percussion and postural drainage. In addition, the patient does state now that she did have a sleep study which was negative, but her weight is still a problem and she intends to proceed with further treatment for her gastric bypass. We will follow closely with you and decide on the need for further intervention. Please see my orders to identify any changes. Jad Fraser MD cc: [id number] TT: 08/06/2016 09:30:07 Confirmation # [id number] Dictation # [id number] mn BRANDON
--- NOTE | 2016-08-06 18:55 | CP.PCM.PN ---
Subjective - Date & Time of Evaluation Date of Evaluation: 08/06/16 Time of Evaluation: 09:55 - Subjective Subjective: Comfortable in bed, no fevers overnight, but still has fatigue and occasional shortness of breath. Objective - Vital Signs/Intake and Output Vital Signs (last 24 hours): Temp Pulse Resp BP Pulse Ox 97.7 F 74 18 181/100 H 96 08/06/16 06:00 08/06/16 17:31 08/06/16 06:00 08/06/16 17:31 08/06/16 06:00 Intake and Output: 08/06/16 08/06/16 06:59 18:59 Intake Total 600 240 Balance 600 240 - Medications Medications: Current Medications Acetaminophen (Tylenol 325mg Tab) 650 mg PO Q4H PRN PRN Reason: Fever >100.4 F Amlodipine Besylate (Norvasc) 2.5 mg PO DAILY [facility] Last Admin: 08/06/16 09:14 Dose: 2.5 mg Arformoterol Tartrate (Brovana) 15 mcg IH [id number] [facility] Last Admin: 08/06/16 07:45 Dose: 15 mcg Budesonide (Pulmicort Respules) 0.5 mg IH BIDRESP [facility] Last Admin: 08/06/16 07:45 Dose: 0.5 mg Clonidine HCl (Catapres) 0.1 mg PO Q8 DANNY Last Admin: 08/06/16 14:09 Dose: 0.1 mg Enoxaparin Sodium (Lovenox) 40 mg SC DAILY DANNY PRN Reason: Protocol Last Admin: 08/06/16 09:18 Dose: 40 mg Guaifenesin/Dextromethorphan (Robitussin Dm) 10 ml PO Q4H PRN PRN Reason: Cough Last Admin: 08/05/16 22:35 Dose: 10 ml Linezolid (Zyvox 600mg/300ml D5w) 300 mls @ 200 mls/hr IVPB Q12 DANNY PRN Reason: Protocol Stop: 08/12/16 10:01 Last Admin: 08/06/16 09:13 Dose: 200 mls/hr Cefepime HCl (Maxipime 1gm) 100 mls @ 100 mls/hr IVPB Q12 DANNY PRN Reason: Protocol Stop: 08/12/16 22:01 Last Admin: 08/06/16 09:14 Dose: 100 mls/hr Insulin Human Regular (Humulin R High) 0 units SC ACHS DANNY PRN Reason: Protocol Last Admin: 08/06/16 17:32 Dose: 12 units Insulin Lispro Protam/Lispro Human (Humalog Mix 75/25) 6 units SC TID [facility] Last Admin: 08/06/16 17:33 Dose: 6 unit Ketorolac Tromethamine (Toradol) 30 mg IVP Q8H PRN PRN Reason: Pain, moderate (4-7) Last Admin: 08/06/16 09:40 Dose: 30 mg Methylprednisolone (Medrol) 16 mg PO BID [facility] Last Admin: 08/06/16 17:32 Dose: 16 mg Pantoprazole Sodium (Protonix Inj) 40 mg IVP DAILY [facility] Last Admin: 08/06/16 09:14 Dose: 40 mg Tiotropium [place] (Spiriva) 18 mcg IH DAILY [facility] Last Admin: 08/06/16 09:15 Dose: 18 mcg - Labs Labs: 08/06/16 07:00 08/06/16 07:00 PT 10.4 Seconds (9.9-11.8) 08/04/16 18:41 INR 0.96 (0.93-1.08) 08/04/16 18:41 APTT 27.4 Seconds (23.7-30.8) 08/04/16 18:41 - Constitutional Appears: Non-toxic, No Acute Distress - Head Exam Head Exam: NORMAL INSPECTION - ENT Exam ENT Exam: Mucous Membranes Moist - Neck Exam Neck Exam: absent: Lymphadenopathy, Meningismus - Respiratory Exam Respiratory Exam: Decreased Breath Sounds - Cardiovascular Exam Cardiovascular Exam: +S1, +S2 - GI/Abdominal Exam GI & Abdominal Exam: Soft. absent: Tenderness Assessment and Plan - Assessment and Plan (Free Text) Plan: Assessment Probable healthcare-associated pneumonia, both lower lobes S/P root canal surgery HTN DM asthma morbid obesity with BMI 40 S/P gastric bypass surgery Plan continue Zyvox and Cefepime (day 2); blood cx negative; PCT noted to be only 0.07; follow up final cx results; once she is clinically better, may consider changing antibiotics to Levaquin to complete up to 7 days of antibiotics Will continue monitor clinical response
[2016-08-07] MEDS: guaiFENesin DM 200 mg-20 mg/10 ml UD PO PRN (02:54)
[2016-08-07 07:16] LABS: ADD MANUAL DIFF? NO; BASO # 0.03 K/mm3 (0.0-2.0); BASO % 0.2 % (0.0-3.0); GRAN # 11.01 (1.4-6.5); GRAN % 82.5 % (50.0-68.0); HEMATOCRIT 33.9 % (36.0-48.0); LYMPH # 1.7 (1.2-3.4); LYMPH % 12.5 % (22.0-35.0); MEAN CELL VOLUME 80.5 fL (80.0-105.0); MEAN CORPUSCULAR HEMOGLOBIN 26.1 pg (25.0-35.0); MEAN CORPUSCULAR HGB CONC 32.4 g/dl (31.0-37.0); MEAN PLATELET VOLUME 11.3 fl (7.0-11.0); MONO # 0.6 (0.1-0.6); MONO % 4.8 % (1.0-6.0); PLATELET COUNT 313 10^3/uL (120.0-450.0); RED CELL DISTRIBUTION WIDTH 15.1 % (11.5-14.5); WHITE BLOOD COUNT 13.4 10^3/ul (4.5-11.0)
[2016-08-07 07:33] LABS: ALB/GLOB RATIO 0.8 (1.1-1.8); BILIRUBIN,TOTAL 0.3 mg/dL (0.2-1.3); CALCIUM 8.3 mg/dL (8.4-10.5); POTASSIUM 4.5 mmol/L (3.6-5.0); TOTAL PROTEIN 6.8 g/dL (5.8-8.3)
[2016-08-07] MEDS: Arformoterol 15 mcg/2 ml Inh Sol IH SCH ×2 (08:03→19:41)
[2016-08-07] MEDS: Budesonide 0.5 mg/2 ml Inhal Susp UD IH SCH ×2 (08:03→19:41)
[2016-08-07] MEDS: Insulin Reg-HIGH-Coverage SC SCH ×3 (08:04→16:26)
--- NOTE | 2016-08-07 09:04 | PN ---
DATE: 08/07/2016 This is the best I have seen her. She is finally improving. She is coughing up a lot of phlegm. Sruthi taylor is actually feeling better too, more energy. Got out of bed yesterday and actually walked. She is having elevated blood sugars and blood pressure. I will adjust her insulin and her blood pres sure medications. I have been waiting for the poultry field service technician to evaluate her blood pressure. She has a 97.8 temp, 181/100 blood pressure and 180/96 blood pressure. She is on Catapres and Norvas c. I increased the Norvasc. HEAD: Atraumatic, normocephalic. Throat is moist. NECK: Supple. HEART: Regular rate. LUNGS: Decreased breath sounds, but clear, less congestion. ABDOMEN: Soft, morbidly obese, nontender. EXTREMITIES: No edema. She is on Brovana, Catapres, insulin, Lovenox, Maxipime, Medrol, Norvasc, Protonix, Pulmicort, Robitu ssin, Spiriva, Toradol, Tylenol, and Zyvox. I will also decrease her Medrol to 14 twice a day from 1 6 twice a day. She is being seen by infectious disease and pulmonary, and I am waiting for cardiology to see her. S he is definitely improving. Hopefully, tomorrow if it is okay, I could change her to tablets and dis charge her. She has pneumonia, hypertension, diabetes, morbidly obese, asthma, status post gastric bypass surgery . Will check her labs tomorrow, adjust the medications, get her out of bed. Yaw Rodríguez DO cc: [id number] TT: 08/07/2016 09:04:00 Confirmation # [id number] Dictation # [id number] mayra
[2016-08-07] MEDS: Insulin Lispro (humaLOG) MIX 75/25(10 ml) SC SCH ×3 (09:28→17:27)
[2016-08-07] MEDS: Enoxaparin 40 mg Syringe SC SCH (09:28)
[2016-08-07] MEDS: Tiotropium 18 mcg Cap For Inhalation IH SCH (09:30)
[2016-08-07] MEDS: Linezolid 600 mg in D5W 300 ml 300 ML IVPB SCH ×2 (09:32→22:40)
[2016-08-07] MEDS: Cefepime 1gm in NS 100ml 100 ML IVPB SCH ×2 (09:32→22:39)
--- NOTE | 2016-08-07 09:58 | PN ---
DATE: 08/07/2016 PULMONARY PROGRESS NOTE LOCATION: Room 364, bed 1. SUBJECTIVE: The patient is markedly improved. She feels better. She is concerned about her hyperte nsion. If this is related to the corticosteroids and sodium load, we are tapering the corticosteroid s and will need to be followed closely by her PMD. She is feeling much better. She has less phlegm. She has no shortness of breath today, and it is my understanding that she is significantly improved . PHYSICAL EXAMINATION: GENERAL: She is comfortable, in no acute distress. VITAL SIGNS: Blood pressure was 140/70, heart rate 86, respiratory rate 18, oxygen sat 100% on room air. HEENT: Normocephalic, atraumatic. NECK: Supple, no JVD, no lymphadenopathy, no bruit. CARDIOVASCULAR: Regular rhythm, S1, S2. No murmur, gallop or rub. CHEST: Actually clear to percussion and auscultation today. EXTREMITIES: Reveal no clubbing, cyanosis or edema. NEUROLOGIC: No focal findings. LYMPHATICS: Negative. DIAGNOSES: 1. Morbid obesity. 2. Status post gastrectomy. 3. No evidence of sleep apnea. 4. Acute bronchospasm - resolved. 5. Bronchopneumonia, improving. 6. Asthma. 7. Post dental infection. 8. Diabetes mellitus. PLAN: The patient should be tapered on her corticosteroids and discharged on p.o. She is markedly i mproved. She states that she will come to me as an outpatient and we will be able to follow this up. Of great importance is the fact that the patient will require a followup x-ray to confirm complete resolution of the pulmonary infiltrates. The patient's problems have been discussed at length with Dr. Yaw Rodríguez. He is aware of these pr oblems and will continue to follow up as an outpatient as well. We will be happy to see her as morenita joseph in the future. Jad Fraser MD cc: [id number] TT: 08/07/2016 09:57:49 Confirmation # [id number] Dictation # [id number] mn
--- NOTE | 2016-08-07 10:43 | CON ---
DATE: 08/07/2016 HISTORY OF PRESENT ILLNESS: The patient is a 41-year-old woman who presents with accelerated hyperte nsion as well as a foot ulcer. The patient suffers from diabetes mellitus, hypertension, and marked obesity. She also complains of dyspnea. The patient has no previous cardiac history. However, has a strong family history for CAD. SOCIAL HISTORY: Does not smoke. REVIEW OF SYSTEMS: A 14-point review of systems was reviewed in detail. No cardiac symptomatology i s noted other than dyspnea. The patient is status post lap band 2 years ago. PHYSICAL EXAMINATION: VITAL SIGNS: Blood pressure is 184/98, heart rate is in the 70s. NECK: Negative JVD. LUNGS: Without rales. HEART: Reveals S1, S2. EXTREMITIES: Lower extremity wound noted. EKG shows no acute changes. LABORATORY DATA: Glucose is 369, BUN and creatinine 33 and 1.5. Hemoglobin is 11 with a white count of 13. IMPRESSION: 1. Diabetic foot ulcer. 2. Diabetes mellitus. 3. Accelerated hypertension. 4. Morbid obesity. 5. Anemia. Given these findings, we will add Diovan to her medical regimen. An echocardiogram has been ordered to evaluate her left ventricular function as well as rule out left ventricular hypertrophy. Ramon Bullock MD cc: [id number] TT: 08/07/2016 10:43:19 Confirmation # [id number] Dictation # [id number] mayra
--- NOTE | 2016-08-07 23:25 | CP.PCM.PN ---
Subjective - Date & Time of Evaluation Date of Evaluation: 08/07/16 Time of Evaluation: 11:20 - Subjective Subjective: Comfortable in bed, not in distress, no fevers. Breathing better. Objective - Vital Signs/Intake and Output Vital Signs (last 24 hours): Temp Pulse Resp BP Pulse Ox 98.5 F 74 18 154/81 H 98 08/07/16 16:00 08/07/16 22:39 08/07/16 16:00 08/07/16 22:39 08/07/16 16:00 Intake and Output: 08/07/16 08/08/16 18:59 06:59 Intake Total 0 660 Balance 0 660 - Medications Medications: Current Medications Acetaminophen (Tylenol 325mg Tab) 650 mg PO Q4H PRN PRN Reason: Fever >100.4 F Amlodipine Besylate (Norvasc) 5 mg PO DAILY [facility] Last Admin: 08/07/16 09:31 Dose: 5 mg Arformoterol Tartrate (Brovana) 15 mcg IH [id number] [facility] Last Admin: 08/07/16 19:41 Dose: 15 mcg Budesonide (Pulmicort Respules) 0.5 mg IH BIDRESP [facility] Last Admin: 08/07/16 19:41 Dose: 0.5 mg Clonidine HCl (Catapres) 0.2 mg PO Q8 [facility] Last Admin: 08/07/16 22:39 Dose: 0.2 mg Enoxaparin Sodium (Lovenox) 40 mg SC DAILY [facility] PRN Reason: Protocol Last Admin: 08/07/16 09:28 Dose: 40 mg Guaifenesin/Dextromethorphan (Robitussin Dm) 10 ml PO Q4H PRN PRN Reason: Cough Last Admin: 08/07/16 02:54 Dose: 10 ml Linezolid (Zyvox 600mg/300ml D5w) 300 mls @ 200 mls/hr IVPB Q12 [facility] PRN Reason: Protocol Stop: 08/12/16 10:01 Last Admin: 08/07/16 22:40 Dose: 200 mls/hr Cefepime HCl (Maxipime 1gm) 100 mls @ 100 mls/hr IVPB Q12 [facility] PRN Reason: Protocol Stop: 08/12/16 22:01 Last Admin: 08/07/16 22:39 Dose: 100 mls/hr Insulin Human Regular (Humulin R High) 0 units SC ACHS [facility] PRN Reason: Protocol Last Admin: 08/07/16 16:26 Dose: 10 units Insulin Lispro Protam/Lispro Human (Humalog Mix 75/25) 10 units SC TID [facility] Last Admin: 08/07/16 17:27 Dose: 10 units Ketorolac Tromethamine (Toradol) 30 mg IVP Q8H PRN PRN Reason: Pain, moderate (4-7) Last Admin: 08/07/16 16:26 Dose: 30 mg Losartan Potassium (Cozaar) 100 mg PO DAILY [facility] Last Admin: 08/07/16 11:04 Dose: 100 mg Methylprednisolone (Medrol) 16 mg PO 12O [facility] Last Admin: 08/07/16 09:32 Dose: 16 mg Pantoprazole Sodium (Protonix Inj) 40 mg IVP DAILY [facility] Last Admin: 08/07/16 09:27 Dose: 40 mg Tiotropium [place] (Spiriva) 18 mcg IH DAILY [facility] Last Admin: 08/07/16 09:30 Dose: 18 mcg - Labs Labs: 08/07/16 05:00 08/07/16 06:45 PT 10.4 Seconds (9.9-11.8) 08/04/16 18:41 INR 0.96 (0.93-1.08) 08/04/16 18:41 APTT 27.4 Seconds (23.7-30.8) 08/04/16 18:41 - Constitutional Appears: Non-toxic, No Acute Distress - Head Exam Head Exam: NORMAL INSPECTION - Respiratory Exam Respiratory Exam: Decreased Breath Sounds - Cardiovascular Exam Cardiovascular Exam: +S1, +S2 - GI/Abdominal Exam GI & Abdominal Exam: Soft. absent: Tenderness Assessment and Plan - Assessment and Plan (Free Text) Plan: Assessment Probable healthcare-associated pneumonia, both lower lobes, clinically improving S/P root canal surgery HTN DM asthma morbid obesity with BMI 40 S/P gastric bypass surgery Plan continue Zyvox and Cefepime (day 3); blood cx negative; PCT noted to be only 0.07; when ready for discharge, we can change antibiotics to Levaquin to complete up to 7 days of antibiotics Will continue monitor clinical response
[2016-08-08] MEDS: Insulin Reg-HIGH-Coverage SC SCH ×5 (06:07→22:14)
[2016-08-08 07:00] LABS: ADD MANUAL DIFF? NO
[2016-08-08 07:08] LABS: BASO # 0.03 K/mm3 (0.0-2.0); BASO % 0.2 % (0.0-3.0); EOS % 0.1 % (1.5-5.0); GRAN % 69.3 % (50.0-68.0); HEMATOCRIT 33.1 % (36.0-48.0); LYMPH % 24.1 % (22.0-35.0); MEAN CELL VOLUME 80.9 fL (80.0-105.0); MEAN CORPUSCULAR HEMOGLOBIN 26.9 pg (25.0-35.0); MEAN CORPUSCULAR HGB CONC 33.2 g/dl (31.0-37.0); MEAN PLATELET VOLUME 10.8 fl (7.0-11.0); MONO # 0.8 (0.1-0.6); MONO % 6.3 % (1.0-6.0); PLATELET COUNT 335 10^3/uL (120.0-450.0); RED CELL DISTRIBUTION WIDTH 14.9 % (11.5-14.5); WHITE BLOOD COUNT 12.3 10^3/ul (4.5-11.0)
[2016-08-08 07:18] LABS: ALB/GLOB RATIO 0.8 (1.1-1.8); BILIRUBIN,TOTAL 0.2 mg/dL (0.2-1.3); CALCIUM 8.3 mg/dL (8.4-10.5); POTASSIUM 4.4 mmol/L (3.6-5.0); TOTAL PROTEIN 6.5 g/dL (5.8-8.3)
[2016-08-08] MEDS: Budesonide 0.5 mg/2 ml Inhal Susp UD IH SCH ×2 (07:44→19:28)
[2016-08-08] MEDS: Arformoterol 15 mcg/2 ml Inh Sol IH SCH ×2 (07:44→19:29)
[2016-08-08] MEDS: Tiotropium 18 mcg Cap For Inhalation IH SCH (09:00)
[2016-08-08] MEDS: Cefepime 1gm in NS 100ml 100 ML IVPB SCH ×2 (09:01→21:33)
[2016-08-08] MEDS: Enoxaparin 40 mg Syringe SC SCH (09:01)
[2016-08-08] MEDS: Insulin Lispro (humaLOG) MIX 75/25(10 ml) SC SCH ×3 (09:01→17:21)
[2016-08-08] MEDS: Linezolid 600 mg in D5W 300 ml 300 ML IVPB SCH ×2 (09:02→22:33)
[2016-08-08] MEDS: Oxycodone/Acetaminophen 5/325 mg Tab PO PRN ×2 (10:15→19:26)
--- NOTE | 2016-08-08 10:41 | PN ---
DATE: 08/08/2016 The patient was seen and examined at bedside. She states that she is breathing better; however, she is still complaining of bilateral wheezing and slight difficulty expectorating. She is on corticoste roids and Brovana inhalations. PHYSICAL EXAMINATION: VITAL SIGNS: Her blood pressure is 140/70, heart rate is 84, respirations 20, oxygen saturation is 9 8 on room air. HEAD, EARS, NOSE AND THROAT: Normocephalic, atraumatic. NECK: Supple, no JVD, no lymphadenopathy. CARDIOVASCULAR: Regular rhythm, S1, S2. CHEST: Bilateral rhonchi and several expiratory wheezes. EXTREMITIES: No pedal edema. GASTROINTESTINAL: Abdomen soft, nontender with no organomegaly, obese. NEUROLOGIC: No focal deficits. SKIN: Clear with no cyanosis and no skin rashes. ASSESSMENT: 1. Exacerbation of bronchial asthma. 2. Bronchopneumonia, resolving. 3. Status post gastrectomy. 4. Morbid obesity and bronchial asthma. PLAN: I would keep the corticosteroids at the present level. Prior to discharge, she can be switche d to p.o. She still is somewhat bronchospastic. Pneumonia is improving on current antibiotics. We will continue with current intervention, recommend a followup chest x-ray to confirm complete resolut ion of pulmonary infiltrates. Jean Pierre Davidson MD cc: [id number] TT: 08/08/2016 10:40:04 Confirmation # [id number] Dictation # [id number]
--- NOTE | 2016-08-08 10:51 | PN ---
DATE: 08/08/2016 PHYSICAL EXAMINATION: VITAL SIGNS: The patient's blood pressure remains at 193 despite increasing medications. NECK: Negative JVD. LUNGS: Without rales. HEART: Reveals S1, S2. EXTREMITIES: Without edema. LABORATORY DATA: Hemoglobin is 11. Chemistries: Glucose is 344, BUN and creatinine are 29 and 1.3. IMPRESSION: 1. Accelerated hypertension. 2. Obesity. 3. Diabetes mellitus. 4. Persistent headache. PLAN: Given these findings, I have adjusted her medication by increasing her clonidine with [place]. We will obtain an ultrasound of the kidneys as well as a duplex to rule out renal artery stenosis. Percocet has been ordered to help with her headache which may help lower her blood pressure. Ramon Bullock MD cc: [id number] TT: 08/08/2016 10:50:55 Confirmation # [id number] Dictation # [id number]
--- NOTE | 2016-08-08 12:38 | PN ---
DATE: 08/08/2016 I came into her room this morning. She is sitting up in bed. She is feeling better than the other d ay. She is having headache and did not sleep all night long well though, but her breathing is better . MEDICATIONS: She is currently on Brovana, Catapres, Cozaar, insulin, HydroDIURIL, Lovenox, Maxipime IV, Medrol, Norvasc, Percocet, Protonix, Pulmicort, Robitussin, Spiriva, Toradol, Tylenol and Zyvox. PHYSICAL EXAMINATION: VITAL SIGNS: She has 98.6 temperature, 66 pulse, blood pressures have been 204/117, 203/108 and 193/ 112 on all that blood pressure medication, respiratory rate is 20, oxygen 98 on room air. HEENT: Head is atraumatic, normocephalic. She looks off with a headache, throat dry. NECK: Supple. HEART: Regular rate. LUNGS: Decreased breath sounds but clear, no wheezes, no rhonchi, no rales at this time. I spoke to the machine bander and cellophaner helper, she had occasional wheeze this morning, right now, no wheezes at all. ABDOMEN: Soft, morbidly obese, nontender, positive bowel sounds. EXTREMITIES: Trace edema. LABORATORY DATA: She has a 12.3 white count from the steroids, 11 hemoglobin, 32.1 hematocrit with 3 35 platelets, 135 sodium, potassium 4.5, BUN is 29, creatinine 1.3 better, GFR is 45. Blood sugars h ave been ed high: 404, 369, 344. We have to tighten up her blood pressure and tighten up the blood sugars. AST is 31, ALT is 37, alk phos 95. Total protein 6.5. Urine is clean. She is being seen by infectious disease, pulmonary and cardiology. Cardiology states accelerated hyp ertension, obesity, diabetes, persistent headache; increased her clonidine with Cozaar added, ordered an ultrasound of kidneys duplex to rule out renal artery stenosis and he gave her Percocet for the h eadache. Dr. Davidson, the machine bander and cellophaner helper, stated exacerbation of bronchial asthma, bronchial pneumonia resolving. He wants to keep her on the corticosteroids at 16 twice a day. When the pneumonia is imp roving, when okay with the geodetic computator; I will get her discharged. I think tomorrow will be the day to discharge as the blood pressure is still so high right now. Infectious disease has continued Zyv ox and cefepime and will put her on Levaquin hopefully tomorrow for 7 more days if this headache and blood pressure can get under control. She is here for numerous reasons: Pneumonia, hypertension, diabetes, weakness, asthma and headache. Will continue with aggressive treatment and care. Yaw Rodríguez DO cc: [id number] TT: 08/08/2016 12:37:23 Confirmation # [id number] Dictation # [id number] jn
--- NOTE | 2016-08-08 13:31 | CP.PCM.PN ---
Subjective - Date & Time of Evaluation Date of Evaluation: 08/08/16 Time of Evaluation: 11:50 - Subjective Subjective: Patient is feeling better, no fevers, no nausea, improved breathing, no diarrhea. Objective - Vital Signs/Intake and Output Vital Signs (last 24 hours): Temp Pulse Resp BP Pulse Ox 98.6 F 71 20 193/112 H 98 08/08/16 07:53 08/08/16 10:00 08/08/16 07:53 08/08/16 10:15 08/08/16 07:53 Intake and Output: 08/08/16 08/08/16 06:59 18:59 Intake Total 660 240 Output Total 300 Balance 660 -60 - Medications Medications: Current Medications Acetaminophen (Tylenol 325mg Tab) 650 mg PO Q4H PRN PRN Reason: Fever >100.4 F Last Admin: 08/08/16 07:12 Dose: 650 mg Amlodipine Besylate (Norvasc) 5 mg PO DAILY [facility] Last Admin: 08/08/16 09:00 Dose: 5 mg Arformoterol Tartrate (Brovana) 15 mcg IH [id number] [facility] Last Admin: 08/08/16 07:44 Dose: 15 mcg Budesonide (Pulmicort Respules) 0.5 mg IH BIDRESP [facility] Last Admin: 08/08/16 07:44 Dose: 0.5 mg Clonidine HCl (Catapres) 0.3 mg PO Q8 [facility] Enoxaparin Sodium (Lovenox) 40 mg SC DAILY [facility] PRN Reason: Protocol Last Admin: 08/08/16 09:01 Dose: 40 mg Guaifenesin/Dextromethorphan (Robitussin Dm) 10 ml PO Q4H PRN PRN Reason: Cough Last Admin: 08/07/16 02:54 Dose: 10 ml Hydrochlorothiazide (Hydrodiuril) 25 mg PO DAILY [facility] Last Admin: 08/08/16 10:15 Dose: 25 mg Linezolid (Zyvox 600mg/300ml D5w) 300 mls @ 200 mls/hr IVPB Q12 [facility] PRN Reason: Protocol Stop: 08/12/16 10:01 Last Admin: 08/08/16 09:02 Dose: 200 mls/hr Cefepime HCl (Maxipime 1gm) 100 mls @ 100 mls/hr IVPB Q12 [facility] PRN Reason: Protocol Stop: 08/12/16 22:01 Last Admin: 08/08/16 09:01 Dose: 100 mls/hr Insulin Human Regular (Humulin R High) 0 units SC ACHS [facility] PRN Reason: Protocol Last Admin: 08/08/16 12:13 Dose: 10 units Insulin Lispro Protam/Lispro Human (Humalog Mix 75/25) 12 units SC TID [facility] Ketorolac Tromethamine (Toradol) 30 mg IVP Q8H PRN PRN Reason: Pain, moderate (4-7) Last Admin: 08/08/16 00:49 Dose: 30 mg Losartan Potassium (Cozaar) 100 mg PO DAILY [facility] Last Admin: 08/08/16 09:00 Dose: 100 mg Methylprednisolone (Medrol) 16 mg PO 12O [facility] Last Admin: 08/08/16 09:02 Dose: 16 mg Oxycodone/Acetaminophen (Percocet 5/325 Mg Tab) 1 tab PO Q6H PRN PRN Reason: Pain, moderate (4-7) Stop: 08/11/16 09:53 Last Admin: 08/08/16 10:15 Dose: 1 tab Pantoprazole Sodium (Protonix Inj) 40 mg IVP DAILY [facility] Last Admin: 08/08/16 09:00 Dose: 40 mg Tiotropium [place] (Spiriva) 18 mcg IH DAILY [facility] Last Admin: 08/08/16 09:00 Dose: 18 mcg - Labs Labs: 08/08/16 06:59 08/08/16 06:59 PT 10.4 Seconds (9.9-11.8) 08/04/16 18:41 INR 0.96 (0.93-1.08) 08/04/16 18:41 APTT 27.4 Seconds (23.7-30.8) 08/04/16 18:41 - Constitutional Appears: Non-toxic, No Acute Distress - Head Exam Head Exam: NORMAL INSPECTION - ENT Exam ENT Exam: Mucous Membranes Moist - Neck Exam Neck Exam: absent: Lymphadenopathy, Meningismus - Respiratory Exam Respiratory Exam: Decreased Breath Sounds (few crackles at the bases) - Cardiovascular Exam Cardiovascular Exam: +S1, +S2 - GI/Abdominal Exam GI & Abdominal Exam: Soft. absent: Tenderness Assessment and Plan - Assessment and Plan (Free Text) Plan: Assessment Probable healthcare-associated pneumonia, both lower lobes, clinically improving S/P root canal surgery HTN DM asthma morbid obesity with BMI 40 S/P gastric bypass surgery Plan continue Zyvox and Cefepime (day 4) to complete a 4-7 day course; blood cx negative; PCT noted to be only 0.07; when ready for discharge, we can change antibiotics to Levaquin to complete up to 7 days of antibiotics (total including the IV courses here in the hospital) Will continue to monitor clinical response
--- NOTE | 2016-08-08 17:48 | CP.PCM.PN ---
Subjective - Date & Time of Evaluation Date of Evaluation: 08/08/16 Time of Evaluation: 15:40 - Subjective Subjective: called by nurse pt, BP is 190/106 pt has receieved clonidine 0.3 mg at 2 pm but still the bp is high.pt denies any complaints. Objective - Vital Signs/Intake and Output Vital Signs (last 24 hours): Temp Pulse Resp BP Pulse Ox 98.6 F 65 20 192/106 H 98 08/08/16 07:53 08/08/16 13:56 08/08/16 07:53 08/08/16 15:58 08/08/16 07:53 Intake and Output: 08/08/16 08/08/16 06:59 18:59 Intake Total 660 1500 Output Total 300 Balance 660 1200 - Medications Medications: Current Medications Acetaminophen (Tylenol 325mg Tab) 650 mg PO Q4H PRN PRN Reason: Fever >100.4 F Last Admin: 08/08/16 07:12 Dose: 650 mg Amlodipine Besylate (Norvasc) 5 mg PO DAILY [facility] Last Admin: 08/08/16 09:00 Dose: 5 mg Arformoterol Tartrate (Brovana) 15 mcg IH [id number] [facility] Last Admin: 08/08/16 07:44 Dose: 15 mcg Budesonide (Pulmicort Respules) 0.5 mg IH BIDRESP [facility] Last Admin: 08/08/16 07:44 Dose: 0.5 mg Clonidine HCl (Catapres) 0.3 mg PO Q8 [facility] Last Admin: 08/08/16 13:56 Dose: 0.3 mg Enoxaparin Sodium (Lovenox) 40 mg SC DAILY [facility] PRN Reason: Protocol Last Admin: 08/08/16 09:01 Dose: 40 mg Guaifenesin/Dextromethorphan (Robitussin Dm) 10 ml PO Q4H PRN PRN Reason: Cough Last Admin: 08/07/16 02:54 Dose: 10 ml Hydrochlorothiazide (Hydrodiuril) 25 mg PO DAILY [facility] Last Admin: 08/08/16 10:15 Dose: 25 mg Linezolid (Zyvox 600mg/300ml D5w) 300 mls @ 200 mls/hr IVPB Q12 [facility] PRN Reason: Protocol Stop: 08/12/16 10:01 Last Admin: 08/08/16 09:02 Dose: 200 mls/hr Cefepime HCl (Maxipime 1gm) 100 mls @ 100 mls/hr IVPB Q12 [facility] PRN Reason: Protocol Stop: 08/12/16 22:01 Last Admin: 08/08/16 09:01 Dose: 100 mls/hr Insulin Human Regular (Humulin R High) 0 units SC ACHS [facility] PRN Reason: Protocol Last Admin: 08/08/16 17:21 Dose: 12 units Insulin Lispro Protam/Lispro Human (Humalog Mix 75/25) 12 units SC TID [facility] Last Admin: 08/08/16 17:21 Dose: 12 unit Ketorolac Tromethamine (Toradol) 30 mg IVP Q8H PRN PRN Reason: Pain, moderate (4-7) Last Admin: 08/08/16 00:49 Dose: 30 mg Losartan Potassium (Cozaar) 100 mg PO DAILY [facility] Last Admin: 08/08/16 09:00 Dose: 100 mg Methylprednisolone (Medrol) 16 mg PO 12O [facility] Last Admin: 08/08/16 09:02 Dose: 16 mg Oxycodone/Acetaminophen (Percocet 5/325 Mg Tab) 1 tab PO Q6H PRN PRN Reason: Pain, moderate (4-7) Stop: 08/11/16 09:53 Last Admin: 08/08/16 10:15 Dose: 1 tab Pantoprazole Sodium (Protonix Inj) 40 mg IVP DAILY [facility] Last Admin: 08/08/16 09:00 Dose: 40 mg Tiotropium [place] (Spiriva) 18 mcg IH DAILY [facility] Last Admin: 08/08/16 09:00 Dose: 18 mcg - Labs Labs: 08/08/16 06:59 08/08/16 06:59 PT 10.4 Seconds (9.9-11.8) 08/04/16 18:41 INR 0.96 (0.93-1.08) 08/04/16 18:41 APTT 27.4 Seconds (23.7-30.8) 08/04/16 18:41 - Constitutional Appears: No Acute Distress - Head Exam Head Exam: NORMOCEPHALIC - Eye Exam Eye Exam: Normal appearance Pupil Exam: PERRL - ENT Exam ENT Exam: Mucous Membranes Moist - Neck Exam Neck Exam: Full ROM - Respiratory Exam Respiratory Exam: Clear to Ausculation Bilateral - Cardiovascular Exam Cardiovascular Exam: REGULAR RHYTHM - GI/Abdominal Exam GI & Abdominal Exam: Normal Bowel Sounds - Extremities Exam Extremities Exam: Full ROM, Normal Capillary Refill, Normal Inspection - Neurological Exam Neurological Exam: Alert, Awake, CN II-XII Intact, Oriented x3 - Psychiatric Exam Psychiatric exam: Normal Affect - Skin Skin Exam: Dry, Normal Color Assessment and Plan - Assessment and Plan (Free Text) Assessment: resistant hypertension. Plan: hydralazine 10 mg po x1. f/u bp .
--- NOTE | 2016-08-08 17:53 | CP.PCM.PN ---
Subjective - Date & Time of Evaluation Date of Evaluation: 08/08/16 Time of Evaluation: 17:49 - Subjective Subjective: pt was admitted for pancreatitis and pancreatic cyst . waiting for surgery ,pt wants to sign AMA. STATES HE WILLF/U WITH HIS PMD. Objective - Vital Signs/Intake and Output Vital Signs (last 24 hours): Temp Pulse Resp BP Pulse Ox 98.6 F 65 20 192/106 H 98 08/08/16 07:53 08/08/16 13:56 08/08/16 07:53 08/08/16 15:58 08/08/16 07:53 Intake and Output: 08/08/16 08/08/16 06:59 18:59 Intake Total 660 1500 Output Total 300 Balance 660 1200 - Medications Medications: Current Medications Acetaminophen (Tylenol 325mg Tab) 650 mg PO Q4H PRN PRN Reason: Fever >100.4 F Last Admin: 08/08/16 07:12 Dose: 650 mg Amlodipine Besylate (Norvasc) 5 mg PO DAILY [facility] Last Admin: 08/08/16 09:00 Dose: 5 mg Arformoterol Tartrate (Brovana) 15 mcg IH [id number] [facility] Last Admin: 08/08/16 07:44 Dose: 15 mcg Budesonide (Pulmicort Respules) 0.5 mg IH BIDRESP [facility] Last Admin: 08/08/16 07:44 Dose: 0.5 mg Clonidine HCl (Catapres) 0.3 mg PO Q8 [facility] Last Admin: 08/08/16 13:56 Dose: 0.3 mg Enoxaparin Sodium (Lovenox) 40 mg SC DAILY [facility] PRN Reason: Protocol Last Admin: 08/08/16 09:01 Dose: 40 mg Guaifenesin/Dextromethorphan (Robitussin Dm) 10 ml PO Q4H PRN PRN Reason: Cough Last Admin: 08/07/16 02:54 Dose: 10 ml Hydrochlorothiazide (Hydrodiuril) 25 mg PO DAILY [facility] Last Admin: 08/08/16 10:15 Dose: 25 mg Linezolid (Zyvox 600mg/300ml D5w) 300 mls @ 200 mls/hr IVPB Q12 [facility] PRN Reason: Protocol Stop: 08/12/16 10:01 Last Admin: 08/08/16 09:02 Dose: 200 mls/hr Cefepime HCl (Maxipime 1gm) 100 mls @ 100 mls/hr IVPB Q12 [facility] PRN Reason: Protocol Stop: 08/12/16 22:01 Last Admin: 08/08/16 09:01 Dose: 100 mls/hr Insulin Human Regular (Humulin R High) 0 units SC ACHS [facility] PRN Reason: Protocol Last Admin: 08/08/16 17:21 Dose: 12 units Insulin Lispro Protam/Lispro Human (Humalog Mix 75/25) 12 units SC TID [facility] Last Admin: 08/08/16 17:21 Dose: 12 unit Ketorolac Tromethamine (Toradol) 30 mg IVP Q8H PRN PRN Reason: Pain, moderate (4-7) Last Admin: 08/08/16 00:49 Dose: 30 mg Losartan Potassium (Cozaar) 100 mg PO DAILY [facility] Last Admin: 08/08/16 09:00 Dose: 100 mg Methylprednisolone (Medrol) 16 mg PO 12O [facility] Last Admin: 08/08/16 09:02 Dose: 16 mg Oxycodone/Acetaminophen (Percocet 5/325 Mg Tab) 1 tab PO Q6H PRN PRN Reason: Pain, moderate (4-7) Stop: 08/11/16 09:53 Last Admin: 08/08/16 10:15 Dose: 1 tab Pantoprazole Sodium (Protonix Inj) 40 mg IVP DAILY [facility] Last Admin: 08/08/16 09:00 Dose: 40 mg Tiotropium [place] (Spiriva) 18 mcg IH DAILY [facility] Last Admin: 08/08/16 09:00 Dose: 18 mcg - Labs Labs: 08/08/16 06:59 08/08/16 06:59 PT 10.4 Seconds (9.9-11.8) 08/04/16 18:41 INR 0.96 (0.93-1.08) 08/04/16 18:41 APTT 27.4 Seconds (23.7-30.8) 08/04/16 18:41 - Constitutional Appears: No Acute Distress - Head Exam Head Exam: NORMOCEPHALIC - Eye Exam Eye Exam: Normal appearance - ENT Exam ENT Exam: Mucous Membranes Moist - Neck Exam Neck Exam: Full ROM - Respiratory Exam Respiratory Exam: Clear to Ausculation Bilateral - Cardiovascular Exam Cardiovascular Exam: RRR, +S1 - GI/Abdominal Exam GI & Abdominal Exam: Soft, Normal Bowel Sounds - Rectal Exam Rectal Exam: Deferred - Extremities Exam Extremities Exam: Full ROM - Neurological Exam Neurological Exam: Alert, Awake, CN II-XII Intact, Oriented x3 - Psychiatric Exam Psychiatric exam: Normal Affect - Skin Skin Exam: Dry, Normal Color, Warm Assessment and Plan - Assessment and Plan (Free Text) Assessment: pancreatic cyst /pancreatitis. AMA. Plan: RISK OF CONTINUED AND WORSE PAIN AND INFECTION EXPLAINED TO PT.
--- NOTE | 2016-08-08 18:04 | CP.PCM.PN ---
Subjective - Date & Time of Evaluation Date of Evaluation: 08/08/16 Time of Evaluation: 15:40 - Subjective Subjective: called by nurse pt has high bp of 190/106. no complaints.pt has receieved 0.3 mg of clonidine at 2 pm but still the bp is elevated. Objective - Vital Signs/Intake and Output Vital Signs (last 24 hours): Temp Pulse Resp BP Pulse Ox 98.6 F 65 20 192/106 H 98 08/08/16 07:53 08/08/16 17:59 08/08/16 07:53 08/08/16 15:58 08/08/16 07:53 Intake and Output: 08/08/16 08/08/16 06:59 18:59 Intake Total 660 1500 Output Total 300 Balance 660 1200 - Medications Medications: Current Medications Acetaminophen (Tylenol 325mg Tab) 650 mg PO Q4H PRN PRN Reason: Fever >100.4 F Last Admin: 08/08/16 07:12 Dose: 650 mg Amlodipine Besylate (Norvasc) 5 mg PO DAILY [facility] Last Admin: 08/08/16 09:00 Dose: 5 mg Arformoterol Tartrate (Brovana) 15 mcg IH [id number] [facility] Last Admin: 08/08/16 07:44 Dose: 15 mcg Budesonide (Pulmicort Respules) 0.5 mg IH BIDRESP [facility] Last Admin: 08/08/16 07:44 Dose: 0.5 mg Clonidine HCl (Catapres) 0.3 mg PO Q8 [facility] Last Admin: 08/08/16 13:56 Dose: 0.3 mg Enoxaparin Sodium (Lovenox) 40 mg SC DAILY [facility] PRN Reason: Protocol Last Admin: 08/08/16 09:01 Dose: 40 mg Guaifenesin/Dextromethorphan (Robitussin Dm) 10 ml PO Q4H PRN PRN Reason: Cough Last Admin: 08/07/16 02:54 Dose: 10 ml Hydrochlorothiazide (Hydrodiuril) 25 mg PO DAILY [facility] Last Admin: 08/08/16 10:15 Dose: 25 mg Linezolid (Zyvox 600mg/300ml D5w) 300 mls @ 200 mls/hr IVPB Q12 [facility] PRN Reason: Protocol Stop: 08/12/16 10:01 Last Admin: 08/08/16 09:02 Dose: 200 mls/hr Cefepime HCl (Maxipime 1gm) 100 mls @ 100 mls/hr IVPB Q12 [facility] PRN Reason: Protocol Stop: 08/12/16 22:01 Last Admin: 08/08/16 09:01 Dose: 100 mls/hr Insulin Human Regular (Humulin R High) 0 units SC ACHS [facility] PRN Reason: Protocol Last Admin: 08/08/16 17:21 Dose: 12 units Insulin Lispro Protam/Lispro Human (Humalog Mix 75/25) 12 units SC TID [facility] Last Admin: 08/08/16 17:21 Dose: 12 unit Ketorolac Tromethamine (Toradol) 30 mg IVP Q8H PRN PRN Reason: Pain, moderate (4-7) Last Admin: 08/08/16 00:49 Dose: 30 mg Losartan Potassium (Cozaar) 100 mg PO DAILY [facility] Last Admin: 08/08/16 09:00 Dose: 100 mg Methylprednisolone (Medrol) 16 mg PO 12O [facility] Last Admin: 08/08/16 09:02 Dose: 16 mg Oxycodone/Acetaminophen (Percocet 5/325 Mg Tab) 1 tab PO Q6H PRN PRN Reason: Pain, moderate (4-7) Stop: 08/11/16 09:53 Last Admin: 08/08/16 10:15 Dose: 1 tab Pantoprazole Sodium (Protonix Inj) 40 mg IVP DAILY [facility] Last Admin: 08/08/16 09:00 Dose: 40 mg Tiotropium [place] (Spiriva) 18 mcg IH DAILY [facility] Last Admin: 08/08/16 09:00 Dose: 18 mcg - Labs Labs: 08/08/16 06:59 08/08/16 06:59 PT 10.4 Seconds (9.9-11.8) 08/04/16 18:41 INR 0.96 (0.93-1.08) 08/04/16 18:41 APTT 27.4 Seconds (23.7-30.8) 08/04/16 18:41 - Constitutional Appears: No Acute Distress - Head Exam Head Exam: NORMOCEPHALIC - Eye Exam Pupil Exam: PERRL - ENT Exam ENT Exam: Mucous Membranes Moist - Neck Exam Neck Exam: Full ROM - Cardiovascular Exam Cardiovascular Exam: RRR, +S1, +S2 - GI/Abdominal Exam GI & Abdominal Exam: Soft, Normal Bowel Sounds - Rectal Exam Rectal Exam: Deferred - Extremities Exam Extremities Exam: Full ROM - Neurological Exam Neurological Exam: Alert, Awake, CN II-XII Intact, Oriented x3 - Psychiatric Exam Psychiatric exam: Normal Affect, Normal Mood - Skin Skin Exam: Dry, Normal Color, Warm Assessment and Plan - Assessment and Plan (Free Text) Assessment: resistant hypertension. Plan: hydralazine 10 mg x1 stat. f/u bp.
--- NOTE | 2016-08-08 18:15 | CARD ---
APPROVED REPORT EXAM: Two-dimensional and M-mode echocardiogram with Doppler and color Doppler. INDICATION Hypertension/HCVD 2D DIMENSIONS Left Atrium (2D)4.0 (1.6-4.0cm)IVSd1.3 (0.7-1.1cm) Aortic Root (2D)2.8 (2.0-3.7cm)LVDd4.4 (3.9-5.9cm) PWd1.2 (0.7-1.1cm)LVDs2.7 (2.5-4.0cm) FS (%) 39.3 %LVEF (%)70.0 (>50%) M-Mode DIMENSIONS Aortic Cusp Exc.1.90 (1.5-2.0cm) Aortic Valve AoV Peak Mvndelta165.0cm/Kyle Peak GR.8mmHg Mitral Valve MV E Ygmttygl78.7cm/sMV A Bnrrtnrx73.6cm/sE/A ratio1.4 TDI Lateral E' Peak V7.02cm/sMedial E' Peak V7.41cm/sE/Lateral E'12.9 E/Medial E'12.2 Pulmonary Valve PV Peak Cgtkoved98.4cm/sPV Peak Grad.2mmHg Tricuspid Valve TR Peak Jjucuhyk748pu/sRAP [id number] Peak Gr.17mmHg [id number] LEFT VENTRICLE The left ventricle is normal size. There is borderline to mild concentric left ventricular hypertrophy. The left ventricular function is normal. The left ventricular ejection fraction is within the normal range. The left ventricular diastolic function is normal. RIGHT VENTRICLE The right ventricle is normal size. There is normal right ventricular wall thickness. The right ventricular systolic function is normal. ATRIA The left atrium is borderline dilated. The right atrium size is normal. AORTIC VALVE The aortic valve is not well visualized. No aortic regurgitation is present. MITRAL VALVE The mitral valve is normal in structure. There is no mitral valve regurgitation noted. GREAT VESSELS The aortic root displays moderate sclerocalcific changes of the aortic root. PERICARDIAL EFFUSION There is no pericardial effusion. <Conclusion> There is borderline to mild concentric left ventricular hypertrophy. The left ventricular function is normal. The left ventricular ejection fraction is within the normal range. The left ventricular diastolic function is normal. The aortic root displays moderate sclerocalcific changes of the aortic root.
--- NOTE | 2016-08-08 18:50 | CP.PCM.PN ---
Subjective - Date & Time of Evaluation Date of Evaluation: 08/09/16 Time of Evaluation: 06:13 - Subjective Subjective: S:Nurse calls to inform that BP is 197/105. Patient is asymptomatic. Pertinent medical record was reviewed. O: Last Vital Signs 3 Temp 98.6 F 08/08/16 07:53 Pulse 69 08/09/16 05:47 Resp 20 08/09/16 01:45 BP 168/103 H 08/09/16 05:40 Pulse Ox 98 08/08/16 07:53 Awake,not in distress. LUNGS:Normal breathing pattern. A:Elevated blood pressure reading. P:Hydralazine as ordered. Objective - Vital Signs/Intake and Output Vital Signs (last 24 hours): Temp Pulse Resp BP Pulse Ox 98.6 F 65 20 192/106 H 98 08/08/16 07:53 08/08/16 17:59 08/08/16 07:53 08/08/16 15:58 08/08/16 07:53 Intake and Output: 08/08/16 08/08/16 06:59 18:59 Intake Total 660 1500 Output Total 300 Balance 660 1200 - Medications Medications: Current Medications Acetaminophen (Tylenol 325mg Tab) 650 mg PO Q4H PRN PRN Reason: Fever >100.4 F Last Admin: 08/08/16 07:12 Dose: 650 mg Amlodipine Besylate (Norvasc) 5 mg PO DAILY [facility] Last Admin: 08/08/16 09:00 Dose: 5 mg Arformoterol Tartrate (Brovana) 15 mcg IH [id number] [facility] Last Admin: 08/08/16 07:44 Dose: 15 mcg Budesonide (Pulmicort Respules) 0.5 mg IH BIDRESP [facility] Last Admin: 08/08/16 07:44 Dose: 0.5 mg Clonidine HCl (Catapres) 0.3 mg PO Q8 [facility] Last Admin: 08/08/16 13:56 Dose: 0.3 mg Enoxaparin Sodium (Lovenox) 40 mg SC DAILY [facility] PRN Reason: Protocol Last Admin: 08/08/16 09:01 Dose: 40 mg Guaifenesin/Dextromethorphan (Robitussin Dm) 10 ml PO Q4H PRN PRN Reason: Cough Last Admin: 08/07/16 02:54 Dose: 10 ml Hydrochlorothiazide (Hydrodiuril) 25 mg PO DAILY [facility] Last Admin: 08/08/16 10:15 Dose: 25 mg Linezolid (Zyvox 600mg/300ml D5w) 300 mls @ 200 mls/hr IVPB Q12 [facility] PRN Reason: Protocol Stop: 08/12/16 10:01 Last Admin: 08/08/16 09:02 Dose: 200 mls/hr Cefepime HCl (Maxipime 1gm) 100 mls @ 100 mls/hr IVPB Q12 [facility] PRN Reason: Protocol Stop: 08/12/16 22:01 Last Admin: 08/08/16 09:01 Dose: 100 mls/hr Insulin Human Regular (Humulin R High) 0 units SC ACHS [facility] PRN Reason: Protocol Last Admin: 08/08/16 17:21 Dose: 12 units Insulin Lispro Protam/Lispro Human (Humalog Mix 75/25) 12 units SC TID [facility] Last Admin: 08/08/16 17:21 Dose: 12 unit Ketorolac Tromethamine (Toradol) 30 mg IVP Q8H PRN PRN Reason: Pain, moderate (4-7) Last Admin: 08/08/16 00:49 Dose: 30 mg Losartan Potassium (Cozaar) 100 mg PO DAILY [facility] Last Admin: 08/08/16 09:00 Dose: 100 mg Methylprednisolone (Medrol) 16 mg PO 12O [facility] Last Admin: 08/08/16 09:02 Dose: 16 mg Oxycodone/Acetaminophen (Percocet 5/325 Mg Tab) 1 tab PO Q6H PRN PRN Reason: Pain, moderate (4-7) Stop: 08/11/16 09:53 Last Admin: 08/08/16 10:15 Dose: 1 tab Pantoprazole Sodium (Protonix Inj) 40 mg IVP DAILY [facility] Last Admin: 08/08/16 09:00 Dose: 40 mg Tiotropium [place] (Spiriva) 18 mcg IH DAILY [facility] Last Admin: 08/08/16 09:00 Dose: 18 mcg - Labs Labs: 08/08/16 06:59 08/08/16 06:59 PT 10.4 Seconds (9.9-11.8) 08/04/16 18:41 INR 0.96 (0.93-1.08) 08/04/16 18:41 APTT 27.4 Seconds (23.7-30.8) 08/04/16 18:41
[2016-08-08] MEDS ORDERED: Nitroglycerin 2% Ointment Foilpak UD TOP STA (18:53)
[2016-08-09] MEDS ORDERED: Insulin Reg-HIGH-Coverage SC STA (03:49)
[2016-08-09 07:31] LABS: ADD MANUAL DIFF? NO; BASO # 0.01 K/mm3 (0.0-2.0); BASO % 0.1 % (0.0-3.0); EOS # 0.1 (0.0-0.7); EOS % 0.5 % (1.5-5.0); GRAN # 8.25 (1.4-6.5); GRAN % 65.7 % (50.0-68.0); HEMATOCRIT 36.3 % (36.0-48.0); LYMPH # 3.6 (1.2-3.4); LYMPH % 28.5 % (22.0-35.0); MEAN CELL VOLUME 80.1 fL (80.0-105.0); MEAN CORPUSCULAR HGB CONC 32.5 g/dl (31.0-37.0); MEAN PLATELET VOLUME 10.8 fl (7.0-11.0); MONO # 0.7 (0.1-0.6); MONO % 5.2 % (1.0-6.0); PLATELET COUNT 376 10^3/uL (120.0-450.0); RED CELL DISTRIBUTION WIDTH 14.6 % (11.5-14.5); WHITE BLOOD COUNT 12.5 10^3/ul (4.5-11.0)
[2016-08-09 07:39] LABS: ALB/GLOB RATIO 0.7 (1.1-1.8); ALKALINE PHOSPHATASE 103 U/L (38-133); ALT/SGPT 39 U/L (7-56); AST/SGOT 23 U/L (15-39); BILIRUBIN,TOTAL 0.7 mg/dL (0.2-1.3); BLOOD UREA NITROGEN 26 mg/dL (7-21); CALCIUM 8.9 mg/dL (8.4-10.5); CARBON DIOXIDE 24 mmol/L (21-33); CHLORIDE 102 mmol/L (95-110); GFR AFRICAN-AMERICAN > 60; GLUCOSE,RANDOM 282 mg/dL (70-110); POTASSIUM 4.2 mmol/L (3.6-5.0); SODIUM 135 mmol/L (132-148); TOTAL PROTEIN 6.9 g/dL (5.8-8.3)
[2016-08-09] MEDS: Insulin Reg-HIGH-Coverage SC SCH ×5 (08:20→22:07)
[2016-08-09] MEDS: Arformoterol 15 mcg/2 ml Inh Sol IH SCH ×2 (08:22→19:25)
[2016-08-09] MEDS: Budesonide 0.5 mg/2 ml Inhal Susp UD IH SCH ×2 (08:22→19:25)
[2016-08-09] MEDS: Tiotropium 18 mcg Cap For Inhalation IH SCH (09:17)
[2016-08-09] MEDS: Insulin Lispro (humaLOG) MIX 75/25(10 ml) SC SCH ×4 (09:18→16:59)
[2016-08-09] MEDS: Enoxaparin 40 mg Syringe SC SCH (09:18)
[2016-08-09] MEDS: Cefepime 1gm in NS 100ml 100 ML IVPB SCH ×2 (09:18→21:21)
[2016-08-09] MEDS: Linezolid 600 mg in D5W 300 ml 300 ML IVPB SCH ×2 (09:19→22:10)
--- NOTE | 2016-08-09 10:53 | PN ---
DATE: 08/09/2016 I was hopefully trying to discharge her today, but she did not sleep all night last night. The blood pressures have all been over 100-108 and she is very uncomfortable and the blood sugars are quite hi gh. She is trying to eat well, following the instructions from the dietitian. PHYSICAL EXAMINATION: VITAL SIGNS: She has a 97.8 temp, 69 pulse. Blood pressures are 168/103, 175/101, 168/103. Respira tory rate 18 and 97% O2 sat on room air. HEENT: Head is atraumatic, normocephalic. Throat is moist. NECK: Supple. HEART: Regular rate. LUNGS: Decreased breath sounds, but clear to auscultation. ABDOMEN: Morbidly obese, nontender, positive bowel sounds. EXTREMITIES: Have trace edema. She is currently on Apresoline. I increased that from 10 IV q. 6 to 20 IV q. 6, Brovana, Catapres 0. 3 three times a day, Cozaar 100, I increased her insulin from 12 to 20 units t.i.d. plus coverage. S he is on hydrochlorothiazide, Lovenox, Maxipime IV. Methylprednisolone I decreased from 16 q. 12 to 12 q. 12. I am trying to get her off the steroids and help the blood sugars. She is on Norvasc 5. I might have to go to 10 mg. Percocet, I stopped that and I am putting her on tramadol. Protonix, P ulmicort, Robitussin, Spiriva, Tylenol and Zyvox IV. She is here for numerous reasons. She has pneumonia, hypertension, diabetes, accelerated hypertensio n, headaches, weakness and now she cannot sleep. She had blood tests. Sodium 135, potassium 4.2, BUN is 26, creatinine 1.6, GFR is greater than 50. Sugars are 344, 354, 302, 370 and 282. Calcium is 8.9, total bili is 0.7, AST is 23, ALT is 39, angelina line phosphatase is 103, total protein 6.9. White count is 12.5, hemoglobin 11.8, hematocrit 36.3, p latelets are 376. I am hoping that my change in medications will help her get the blood sugars down and get the blood p ressure down. I will discuss this with pulmonary and cardiology and I cannot discharge her today in her condition. We will check her labs tomorrow. Yaw Rodríguez DO cc: [id number] TT: 08/09/2016 10:52:41 Confirmation # [id number] Dictation # [id number] en
--- NOTE | 2016-08-09 12:06 | PN ---
DATE: 08/09/2016 CARDIOLOGY FOLLOWUP The patient's headache is better on Percocet. PHYSICAL EXAMINATION: VITAL SIGNS: Blood pressure is 168/103. Heart rate in the 60s. NECK: Negative JVD. LUNGS: Without rales. HEART: S1, S2. EXTREMITIES: Without edema. LABORATORY DATA: Hemoglobin is 11.8. Chemistries: The BUN and creatinine is 26/1.2. Echocardiogram reveals LVH with good LV function. IMPRESSION: 1. Accelerated hypertension. 2. Obesity. 3. Headache, which is improved. 4. Diabetes mellitus. PLAN: Given these findings, awaiting for ultrasound of the renal arteries to rule out renal artery s tenosis. Ramon Bullock MD cc: [id number] TT: 08/09/2016 12:05:12 Confirmation # [id number] Dictation # [id number] jn
--- NOTE | 2016-08-09 13:32 | CP.PCM.PN ---
Subjective - Date & Time of Evaluation Date of Evaluation: 08/09/16 Time of Evaluation: 11:45 - Subjective Subjective: having problems with her blood pressure and sugars. Breathing better, no fevers overnight. Objective - Vital Signs/Intake and Output Vital Signs (last 24 hours): Temp Pulse Resp BP Pulse Ox 97.8 F 69 18 156/86 H 97 08/09/16 08:01 08/09/16 08:01 08/09/16 08:01 08/09/16 11:30 08/09/16 08:01 Intake and Output: 08/09/16 08/09/16 06:59 18:59 Intake Total 800 Balance 800 - Medications Medications: Current Medications Acetaminophen (Tylenol 325mg Tab) 650 mg PO Q4H PRN PRN Reason: Fever >100.4 F Last Admin: 08/08/16 07:12 Dose: 650 mg Amlodipine Besylate (Norvasc) 5 mg PO DAILY [facility] Last Admin: 08/09/16 09:16 Dose: 5 mg Arformoterol Tartrate (Brovana) 15 mcg IH [id number] [facility] Last Admin: 08/09/16 08:22 Dose: 15 mcg Budesonide (Pulmicort Respules) 0.5 mg IH BIDRESP [facility] Last Admin: 08/09/16 08:22 Dose: 0.5 mg Clonidine HCl (Catapres) 0.3 mg PO Q8 [facility] Last Admin: 08/09/16 05:40 Dose: 0.3 mg Enoxaparin Sodium (Lovenox) 40 mg SC DAILY [facility] PRN Reason: Protocol Last Admin: 08/09/16 09:18 Dose: 40 mg Guaifenesin/Dextromethorphan (Robitussin Dm) 10 ml PO Q4H PRN PRN Reason: Cough Last Admin: 08/07/16 02:54 Dose: 10 ml Hydralazine HCl (Apresoline) 20 mg IVP Q6 PRN PRN Reason: Systolic Blood Pressure Hydrochlorothiazide (Hydrodiuril) 25 mg PO DAILY [facility] Last Admin: 08/09/16 09:17 Dose: 25 mg Linezolid (Zyvox 600mg/300ml D5w) 300 mls @ 200 mls/hr IVPB Q12 [facility] PRN Reason: Protocol Stop: 08/12/16 10:01 Last Admin: 08/09/16 09:19 Dose: 200 mls/hr Cefepime HCl (Maxipime 1gm) 100 mls @ 100 mls/hr IVPB Q12 [facility] PRN Reason: Protocol Stop: 08/12/16 22:01 Last Admin: 08/09/16 09:18 Dose: 100 mls/hr Insulin Human Regular (Humulin R High) 0 units SC ACHS [facility] PRN Reason: Protocol Last Admin: 08/09/16 11:48 Dose: 7 units Insulin Lispro Protam/Lispro Human (Humalog Mix 75/25) 20 units SC TID [facility] Last Admin: 08/09/16 10:24 Dose: Not Given Ketorolac Tromethamine (Toradol) 30 mg IVP Q8H PRN PRN Reason: Pain, moderate (4-7) Last Admin: 08/09/16 03:39 Dose: 30 mg Losartan Potassium (Cozaar) 100 mg PO DAILY [facility] Last Admin: 08/09/16 09:17 Dose: 100 mg Methylprednisolone (Medrol) 12 mg PO 12O [facility] Last Admin: 08/09/16 10:24 Dose: Not Given Pantoprazole Sodium (Protonix Inj) 40 mg IVP DAILY [facility] Last Admin: 08/09/16 09:16 Dose: 40 mg Tiotropium [place] (Spiriva) 18 mcg IH DAILY [facility] Last Admin: 08/09/16 09:17 Dose: 18 mcg Tramadol HCl (Ultram) 50 mg PO TID PRN PRN Reason: Pain, moderate (4-7) - Labs Labs: 08/09/16 05:00 08/09/16 07:23 PT 10.4 Seconds (9.9-11.8) 08/04/16 18:41 INR 0.96 (0.93-1.08) 08/04/16 18:41 APTT 27.4 Seconds (23.7-30.8) 08/04/16 18:41 - Constitutional Appears: Non-toxic, No Acute Distress - Head Exam Head Exam: NORMAL INSPECTION - Neck Exam Neck Exam: absent: Lymphadenopathy, Meningismus - Respiratory Exam Respiratory Exam: Decreased Breath Sounds - Cardiovascular Exam Cardiovascular Exam: +S1, +S2 - GI/Abdominal Exam GI & Abdominal Exam: Soft. absent: Tenderness Assessment and Plan - Assessment and Plan (Free Text) Plan: Assessment Probable healthcare-associated pneumonia, both lower lobes, clinically improving S/P root canal surgery HTN DM asthma morbid obesity with BMI 40 S/P gastric bypass surgery Plan continue Zyvox and Cefepime (day 5) to complete a 4-7 day course; blood cx negative; PCT noted to be only 0.07; when ready for discharge, we can change antibiotics to Levaquin to complete up to 7 days of antibiotics (total including the IV courses here in the hospital) Will continue to monitor clinical response
--- NOTE | 2016-08-09 14:38 | PN ---
DATE: 08/09/2016 The patient was seen and examined at bedside. She is not complaining of shortness of breath. She co ughs occasionally. The shortness of breath only on sitting up and exertion. However, she is complai lona of dizziness. She is on cefepime as well as Zyvox. She is receiving inhalation treatments with budesonide and Brovana. PHYSICAL EXAMINATION: VITAL SIGNS: Blood pressure 140/70, heart rate 88, respirations 18, oxygen saturation is 96% on room air. HEAD, EARS, NOSE AND THROAT: Normocephalic, atraumatic. NECK: Supple, no jugular vein distention, no adenopathy. CARDIOVASCULAR: Regular rhythm. S1, S2. CHEST: Few scattered rhonchi and few expiratory wheezes. GASTROINTESTINAL: Soft, nontender, no organomegaly. EXTREMITIES: No pedal edema. NEUROLOGIC: No focal deficits. SKIN: Clear with no cyanosis and no skin rashes. ASSESSMENT: 1. Exacerbation of bronchial asthma. 2. Bronchopneumonia, resolving. 3. Status post gastrectomy. 4. Morbid obesity. PLAN: The patient is improving in terms of shortness of breath. She remains afebrile and pneumonia is resolving as far as chest x-ray is concerned. Both steroids can be reduced. Her WBCs today 12.5 and 11.8. Steroids can be tapered as well and switched to oral. We will continue following until re solution. Jean Pierre Davidson MD cc: [id number] TT: 08/09/2016 14:37:39 Confirmation # [id number] Dictation # [id number] en
--- NOTE | 2016-08-10 07:42 | PN ---
DATE: 08/10/2016 SUBJECTIVE: The patient appears very comfortable this morning. She is not short of breath at rest. PHYSICAL EXAMINATION: VITAL SIGNS: Temperature is 98.7, pulse 64, respirations 18, blood pressure 188 /100. Oxygen saturation on room air is 96%-97%. HEENT: Normocephalic, atraumatic. No JVD. CARDIOVASCULAR: Positive S1, S2. No S3. LUNGS: Decreased breath sounds at the bases. Minimal rhonchi. No wheezing. EXTREMITIES: Mild edema. No cyanosis. No clubbing. Calves are nontender to palpation. GASTROINTESTINAL: Abdomen is soft, nontender, nondistended. Bowel sounds are positive. SKIN: No acute rash. NEUROLOGIC: Limited at the present time. IMPRESSION: 1. Community-acquired pneumonia -- resolving. 2. Asthma. 3. Morbid obesity. 4. Diabetes mellitus. PLAN: The patient appears very comfortable this morning. She is not short of breath at rest. She states she is feeling much, much better overall. On physical exam, only minimal bronchospasm is noted. In addition, there is no significant alveolar-arterial gradient. Oxygen saturation on room air is now 96 %-97%. I will continue with the current nebulizer treatments for now. I will also change to oral prednisone -- for ease of weaning. I would continue with the antibiotic coverage as per infectious disease. Input by Dr. Lua is noted. The temperatures have completely resolved. The leukocytosis is also resolving. Clinical status of the patient is significantly improved -- compared to the initial presentation. The patient is advised to increase her activity as tolerated. I will discuss the above with Dr. Rodríguez. Reuben Farooq MD cc: [phone] TT: 08/10/2016 07:41:15 Confirmation # [id number] Dictation # [id number] en MTDD
[2016-08-10] MEDS: Insulin Reg-HIGH-Coverage SC SCH ×4 (07:45→22:00)
[2016-08-10] MEDS: Budesonide 0.5 mg/2 ml Inhal Susp UD IH SCH ×2 (08:01→21:03)
[2016-08-10] MEDS: Arformoterol 15 mcg/2 ml Inh Sol IH SCH ×2 (08:01→21:02)
--- NOTE | 2016-08-10 08:29 | PN ---
DATE: 08/10/2016 We are having some problems with her blood pressure. It has been as high as 159/104, then it drops t o 139/82, then it pops back up to 188/100, depending on what medication she is on. I am hoping to tr y and discharge her as soon as I can from cardiology standpoint and make sure the blood pressures are low all the time. She did not sleep last night and she is breathing better. PHYSICAL EXAMINATION: VITAL SIGNS: Temp 98, 64 pulse, 188/100, 20 respiratory rate, 99% O2 sat on room air. HEAD: Atraumatic, normocephalic. THROAT: Moist. NECK: Supple. HEART: Regular rate. LUNGS: Decreased breath sounds, but clear. ABDOMEN: Soft, morbidly obese. EXTREMITIES: Have trace edema. She is currently on hydralazine 20 IV q. 6, Brovana, Catapres 0.3 p.o. q. 8. She tells me that when she is on the Catapres, her blood pressure goes up, but the hydralazine brings it down. Also, Cozaar , insulin, HydroDIURIL, Lovenox, Maxipime, Norvasc 5. I am going to increase it to 10. Prednisone 2 0, Protonix, Pulmicort, Robitussin, Spiriva, Toradol, Tylenol, tramadol, Zyvox IV. She is here for pneumonia, accelerated hypertension, diabetes, headache. I will talk to pulmonary an d cardio and infectious disease. I am trying to get her off the steroids, IV antibiotics and on the correct blood pressure medications that are not IV medications. Yaw Rodríguez DO cc: [id number] TT: 08/10/2016 08:28:17 Confirmation # [id number] Dictation # [id number] en
[2016-08-10 08:50] LABS: HEMATOCRIT 35.5 % (36.0-48.0); MEAN CELL VOLUME 79.4 fL (80.0-105.0); MEAN CORPUSCULAR HEMOGLOBIN 26.2 pg (25.0-35.0); MEAN PLATELET VOLUME 10.1 fl (7.0-11.0); RED CELL DISTRIBUTION WIDTH 14.3 % (11.5-14.5); WHITE BLOOD COUNT 15.2 10^3/ul (4.5-11.0)
[2016-08-10 09:07] LABS: ALB/GLOB RATIO 0.7 (1.1-1.8); BILIRUBIN,TOTAL 0.4 mg/dL (0.2-1.3); CALCIUM 8.7 mg/dL (8.4-10.5); POTASSIUM 4.2 mmol/L (3.6-5.0); TOTAL PROTEIN 6.5 g/dL (5.8-8.3)
[2016-08-10] MEDS: Enoxaparin 40 mg Syringe SC SCH (10:19)
[2016-08-10] MEDS: Linezolid 600 mg in D5W 300 ml 300 ML IVPB SCH ×2 (10:20→22:18)
[2016-08-10] MEDS: Tiotropium 18 mcg Cap For Inhalation IH SCH (10:20)
[2016-08-10] MEDS: Cefepime 1gm in NS 100ml 100 ML IVPB SCH ×2 (10:20→21:11)
[2016-08-10] MEDS: Insulin Lispro (humaLOG) MIX 75/25(10 ml) SC SCH ×3 (10:27→18:32)
--- NOTE | 2016-08-10 10:30 | PN ---
DATE: 08/10/2016 The blood pressure is much better controlled, ranging from 139 systolic to 188 systolic. PHYSICAL EXAMINATION: NECK: Negative JVD. LUNGS: Without rales. HEART: Reveals S1, S2. EXTREMITIES: Without edema. Hemoglobin is 11.7. BUN and creatinine are unremarkable. Glucose is 239. IMPRESSION: 1. Accelerated hypertension. 2. Diabetes mellitus. 3. Obesity. 4. Headache, which is better on Percocet. Given these findings, her is under better control. She needs to have her steroids tapered off. Waiting for the results of the Doppler of her kidneys. Ramon Bullock MD cc: [id number] TT: 08/10/2016 10:29:47 Confirmation # [id number] Dictation # [id number] en
--- NOTE | 2016-08-10 18:33 | US ---
PROCEDURE: Bilateral renal artery duplex ultrasound. CLINICAL HISTORY: Renal artery stenosis. Uncontrolled hypertension. Evaluate for renovascular hypertension. PHYSICIAN(S): Ramon Trujillo M.D. TECHNIQUE: Duplex sonography with color-flow Doppler was used to evaluate the visualized segments of the main renal arteries. The patient was evaluated in a fasting state. Imaging in a supine and decubitus position was performed. Limited evaluation of the arcuate waveforms and resistive indices were performed. FINDINGS: The overall quality of the study is adequate. The kidneys are normal in size, shape, and location. The right kidney measures 12.0cm in length and the left kidney measures 10.5cm in length. No solid renal masses, abnormal calcifications, or hydronephrosis is seen. The main right renal artery is fairly well visualized from the aorta to the hilum. The peak systolic velocity in the right main renal artery is 113 cm/sec. This is consistent with a 0 to 49% stenosis in the main right renal artery. The arcuate waveforms are normal. The resistive index is normal. The main left renal artery is also fairly well seen from its origin to the renal hilum. The peak systolic velocity in the main left renal artery is 133cm/sec. This corresponds to a 0 to 49% stenosis in the main left renal artery. The arcuate waveforms and resistive indices are normal. IMPRESSION: 1. The main renal arteries are fairly well visualized. 2. No sonographically significant stenosis is identified. 3. The kidneys are normal and symmetric in size. There are no solid renal masses, abnormal calcifications or hydronephrosis noted.
[2016-08-11 01:17] VITALS: RESP 20; O2SAT 97
[2016-08-11 02:39] VITALS: PULSE 80
[2016-08-11 06:36] LABS: HEMATOCRIT 36.2 % (36.0-48.0); MEAN CELL VOLUME 81.3 fL (80.0-105.0); MEAN CORPUSCULAR HEMOGLOBIN 26.5 pg (25.0-35.0); MEAN CORPUSCULAR HGB CONC 32.6 g/dl (31.0-37.0); MEAN PLATELET VOLUME 10.6 fl (7.0-11.0); RED CELL DISTRIBUTION WIDTH 14.9 % (11.5-14.5); WHITE BLOOD COUNT 17.1 10^3/ul (4.5-11.0)
[2016-08-11 07:50] LABS: ALB/GLOB RATIO 0.8 (1.1-1.8); BILIRUBIN,TOTAL 0.4 mg/dL (0.2-1.3); CALCIUM 8.8 mg/dL (8.4-10.5); POTASSIUM 4.6 mmol/L (3.6-5.0); TOTAL PROTEIN 6.4 g/dL (5.8-8.3)
[2016-08-11] MEDS: Arformoterol 15 mcg/2 ml Inh Sol IH SCH (08:10)
[2016-08-11] MEDS: Budesonide 0.5 mg/2 ml Inhal Susp UD IH SCH (08:10)
[2016-08-11] MEDS: Insulin Reg-HIGH-Coverage SC SCH (08:24)
--- NOTE | 2016-08-11 09:23 | PN ---
DATE: 08/11/2016 SUBJECTIVE: The patient appears very comfortable this morning. She is not short of breath at rest. OBJECTIVE: VITAL SIGNS: Temperature is 98.1, pulse 80, respirations 18, blood pressure 130 /76. Oxygen saturation on room air is 97-99%. HEENT: Normocephalic, atraumatic. No JVD. CARDIOVASCULAR: Positive S1, S2. No S3. LUNGS: Improved breath sounds at the bases. Very minimal/less rhonchi. No wheezing. EXTREMITIES: Mild edema. No cyanosis, no clubbing. Calves are nontender to palpation. GASTROINTESTINAL: Abdomen is soft, nontender, nondistended. Bowel sounds are positive. SKIN: No acute rash. NEUROLOGIC: Limited at the present time. IMPRESSION: 1. Community-acquired pneumonia - resolving. 2. Asthma. 3. Morbid obesity. 4. Diabetes mellitus. PLAN: The patient appears very comfortable this morning. She is not short of breath at rest. She is coughing much less. She states to feeling much, much better overall. On physical exam, her bronchospasm continues to resolve. In addition, the oxygen saturation on room air is now 97-99%. I will continue with the current nebulizer treatments and decrease the oral steroids this morning. The patient remains on antibiotic therapy - as per infectious disease. Her temperatures have fully resolved. Blood cultures remain negative. Input by Dr. Bullock - cardiology - is noted. The patient's blood pressure is much more controlled this morning. Clinical status of the patient is significantly improved - compared to the initial presentation. She is for discharge in the near future. She did state to me that she will follow up with my partner - Dr. Fraser - after discharge. I will discuss the above with Dr. Rodríguez. Reuben Farooq MD cc: [phone] TT: 08/11/2016 09:22:46 Confirmation # [id number] Dictation # [id number] safia TAYLOR
[2016-08-11 10:04] VITALS: BP 109/63; TEMP 99.1
[2016-08-11] MEDS: Tiotropium 18 mcg Cap For Inhalation IH SCH (10:14)
[2016-08-11] MEDS: Enoxaparin 40 mg Syringe SC SCH (10:15)
[2016-08-11] MEDS: Cefepime 1gm in NS 100ml 100 ML IVPB SCH (10:15)
[2016-08-11] MEDS: Linezolid 600 mg in D5W 300 ml 300 ML IVPB SCH (10:16)
[2016-08-11] MEDS: Insulin Lispro (humaLOG) MIX 75/25(10 ml) SC SCH (10:18)
--- NOTE | 2016-08-11 11:59 | PN ---
DATE: 08/11/2016 SUBJECTIVE: The patient is comfortable. No shortness of breath, no chest pain. PHYSICAL EXAMINATION: VITAL SIGNS: Blood pressure varies from 110-168, the heart rate is in the 80s. NECK: Negative JVD. LUNGS: Without rales. HEART: Reveals S1, S2. EXTREMITIES: Without edema. LABORATORY DATA: Hemoglobin is 11.8. Chemistries: The glucose is 239. Renal Dopplers reveal no re nal artery stenosis. IMPRESSION: 1. Accelerated hypertension. 2. Obesity. 3. Diabetes mellitus. 4. Pneumonia. PLAN: Given these findings, we will decrease her clonidine given her much improved blood pressure. We will continue losartan as well as hydrochlorothiazide. Ramon Bullock MD cc: [id number] TT: 08/11/2016 11:58:11 Confirmation # [id number] Dictation # [id number] tn
--- NOTE | 2016-08-11 12:17 | DS ---
I saw the patient resting this morning in bed. She slept well. No more headaches. She is feeling w ell. Blood pressure is better. She is eating well, overall breathing well. No chest pain, shortnes s of breath or abdominal pain. In good spirits. I am going to be discharging her home today. PHYSICAL EXAMINATION: VITAL SIGNS: She has a 98.1 temp, 81 pulse, 130/76 blood pressure, 20 respiratory rate, 97% O2 sat o n room air. HEENT: Head is atraumatic, normocephalic. Throat is moist. NECK: Supple. HEART: Regular rate. LUNGS: Decreased breath sounds but clear to auscultation. ABDOMEN: Soft, morbidly obese, nontender, positive bowel sounds. No guarding, no rebound, no CVA te nderness. EXTREMITIES: No edema. LABORATORY DATA: Her last labs, she has a 17.1 white count, 11.8 hemoglobin, 36.2 hematocrit with a 320 platelets. A 135 sodium, potassium 4.6, BUN 20, creatinine 1.4. GFR is 42. Last sugar is 239. The sugar and the white count has been elevated because of steroids, so we are going to decreasing t aper on the outpatient. Calcium is 8.8, total bili is 0.4, AST is 21, ALT is 31, alk phos 103, total protein 6.4. She is being seen by pulmonary and cardiology. I discussed with them that we are going to be dischar ging her. Also, I discussed with infectious disease. She is going to be going home on her Brovana, Catapres, Cozaar, Humalog, HydroDIURIL, Levaquin 500 x 7 days for antibiotics, Norvasc, prednisone 10 mg for 3 days only, Protonix, Pulmicort, Spiriva, Robitussin, tramadol. She will be following up wi th her primary care doctor on Wednesday and she was here for numerous reasons. She was here for pneumon ia, hypertension, headaches, diabetes, and she did very well. Yaw Rodríguez DO cc: [id number] TT: 08/11/2016 12:15:51 sn
--- NOTE | 2016-08-11 21:23 | CP.PCM.PN ---
Subjective - Date & Time of Evaluation Date of Evaluation: 08/11/16 Time of Evaluation: 12:15 - Subjective Subjective: Comfortable in bed, not in distress, afebrile, feels better. Objective - Vital Signs/Intake and Output Vital Signs (last 24 hours): Temp Pulse Resp BP Pulse Ox 99.1 F 80 20 109/63 97 08/11/16 06:00 08/11/16 10:00 08/11/16 06:00 08/11/16 06:00 08/11/16 06:00 Intake and Output: 08/11/16 08/12/16 18:59 06:59 Intake Total 600 Balance 600 - Labs Labs: 08/11/16 05:00 08/11/16 05:20 PT 10.4 Seconds (9.9-11.8) 08/04/16 18:41 INR 0.96 (0.93-1.08) 08/04/16 18:41 APTT 27.4 Seconds (23.7-30.8) 08/04/16 18:41 - Constitutional Appears: Non-toxic, No Acute Distress - Head Exam Head Exam: NORMAL INSPECTION - ENT Exam ENT Exam: Mucous Membranes Moist - Neck Exam Neck Exam: absent: Lymphadenopathy, Meningismus - Respiratory Exam Respiratory Exam: Decreased Breath Sounds - Cardiovascular Exam Cardiovascular Exam: +S1, +S2 - GI/Abdominal Exam GI & Abdominal Exam: Soft. absent: Tenderness Assessment and Plan - Assessment and Plan (Free Text) Plan: Assessment Probable healthcare-associated pneumonia, both lower lobes, clinically improving S/P root canal surgery HTN DM asthma morbid obesity with BMI 40 S/P gastric bypass surgery Plan on Zyvox and Cefepime (day 6) to complete a 4-7 day course; blood cx negative; PCT noted to be only 0.07
== END 2016-08-11 14:32 | disposition home or self-care (01) | DRG 194 ==
LOC: ED 17:32 → ERH 22:34 → 3RNO 08-05 00:12
PROVIDERS: ADMIT Family Medicine; ATTEND Family Medicine
DX: J18.0 Bronchopneumonia, unspecified organism (principal); J45.901 Unspecified asthma with (acute) exacerbation; E11.621 Type 2 diabetes mellitus with foot ulcer; Z68.41 Body mass index [BMI] 40.0-44.9, adult; E66.01 Morbid (severe) obesity due to excess calories; L97.509 Non-pressure chronic ulcer of other part of unspecified foot with unspecified severity; I10 Essential (primary) hypertension; M21.371 Foot drop, right foot; H55.00 Unspecified nystagmus; D64.9 Anemia, unspecified; R51 Headache; Z79.4 Long term (current) use of insulin; Z82.49 Family history of ischemic heart disease and other diseases of the circulatory system; Z98.84 Bariatric surgery status

== ENCOUNTER 2017-05-06 18:40 | Emergency (ER) | payer BC, OTHER ==
[2017-05-06 18:45] VITALS: BMI 44.1
[2017-05-06] MEDS ORDERED: Morphine 4 mg/ml ISec IVP STA (19:28)
[2017-05-06] MEDS ORDERED: Sodium Chloride 0.9% 1,000 ML IV STA (19:28)
--- NOTE | 2017-05-06 20:03 | ED PDOC ---
Arrival/HPI - General Chief Complaint: Abdominal Pain Time Seen by Provider: 05/06/17 18:43 Historian: Patient - History of Present Illness Narrative History of Present Illness (Text): 05/06/17 20:12 42yo female with PMHx of NIDDM, hypertension, s/p gastric band placement 3years ago at [facility] present with complaint of severe lower abdominal pain with associated nausea. She notes that this pain has been ongoing for over a year now. States she saw the Surgeon and is scheduled for the removal of the band on May 08. States the pain became worse today and she saw her PMD who referred her to ED for CT. She denies vomiting, diarrhea, constipation, fever, chills, chest pain, SOB, urinary symptoms, diaphoresis, hematemesis, melena. 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 - Renal Hx Renal Disorder: No - Endocrine/Metabolic Hx Diabetes Mellitus Type 2: Yes - Hematological/Oncological Hx Blood Disorders: No - Integumentary Hx Dermatological Disorder: No - Musculoskeletal/Rheumatological Hx Falls: No - Gastrointestinal Hx Gastrointestinal Disorders: No - Genitourinary/Gynecological Hx Genitourinary Disorders: No - Psychiatric Hx Substance Use: No - Past Surgical History Past Surgical History: No Previous - Surgical History Hx Gastric Bypass Surgery: Yes Other/Comment: c section, gastric band - Anesthesia Hx Anesthesia: Yes - Suicidal Assessment Feels Threatened In Home Enviroment: No Family/Social History - Physician Review Nursing Documentation Reviewed: Yes Family/Social History: Unknown Family HX Smoking Status: Never Smoked Hx Alcohol Use: No Hx Substance Use: No Hx Substance Use Treatment: No Allergies/Home Meds Allergies/Adverse Reactions: Allergies No Known Allergies Allergy (Verified 05/06/17 18:45) Home Medications: Home Meds Medication Instructions Recorded Confirmed Insulin Glargine,Hum.rec.anlog 30 unit SC DAILY 08/12/14 05/06/17 [Lantus] Review of Systems - Physician Review All systems were reviewed & negative as marked: Yes - Review of Systems Constitutional: Normal Eyes: Normal ENT: Normal Respiratory: Normal Cardiovascular: Normal Gastrointestinal: Abdominal Pain, Nausea. absent: Constipation, Diarrhea, Vomiting, Hematemesis Genitourinary Female: Normal Musculoskeletal: Normal Skin: Normal Neurological: Normal Endocrine: Normal Hemo/Lymphatic: Normal Psychiatric: Normal Physical Exam Vital Signs Reviewed: Yes Vital Signs Temp Pulse Resp BP Pulse Ox 05/06/17 23:27 97.9 F 83 19 137/89 99 05/06/17 18:48 98.4 F 86 18 152/100 H 98 05/06/17 18:47 98.4 F 87 18 152/100 H 98 Temperature: Afebrile Blood Pressure: Hypertensive Pulse: Regular Respiratory Rate: Normal Appearance: Positive for: Well-Appearing, Non-Toxic, Comfortable, Other ( Morbidly obese) Pain Distress: Mild Mental Status: Positive for: Alert and Oriented X 3 - Systems Exam Head: Present: Atraumatic, Normocephalic Pupils: Present: PERRL Extroacular Muscles: Present: EOMI Conjunctiva: Present: Normal Mouth: Present: Moist Mucous Membranes Neck: Present: Normal Range of Motion Respiratory/Chest: Present: Clear to Auscultation, Good Air Exchange. No: Respiratory Distress, Accessory Muscle Use Cardiovascular: Present: Regular Rate and Rhythm, Normal S1, S2. No: Murmurs Abdomen: Present: Tenderness (Diffuse lower abdomen from the umbilicus), Distention (Secondary to body habitus), Normal Bowel Sounds (Hyperactive BS x 2 on the lower abdomen), Guarding, Other (soft). No: Peritoneal Signs, Rebound, McBurney's Point Tender, Rovsing's Sign Present Back: Present: Normal Inspection Upper Extremity: Present: Normal Inspection. No: Cyanosis, Edema Lower Extremity: Present: Normal Inspection. No: Edema Neurological: Present: GCS=15, CN II-XII Intact, Speech Normal Skin: Present: Warm, Dry, Normal Color. No: Rashes Psychiatric: Present: Alert, Oriented x 3, Normal Insight, Normal Concentration Medical Decision Making ED Course and Treatment: 05/07/17 01:56 PT presented for stated history. Her pain was controlled in ED with Morphine. Lipase of 555 was noted, however pt's pain is on lower abdomen of her abdomen. Mild elevation of Cr was noted. Abdominal Ct IMPRESSION: 1. Right adnexal lesion, indeterminate. Recommend ultrasound. 2. Incidental/non-acute findings are described above. Result was DW the pt. 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 - Lab Interpretations Lab Results: 05/06/17 19:45 05/06/17 19:45 Lab Results 05/06/17 20:40: Urine Color Yellow, Urine Appearance Sl cloudy, Urine pH 6.0, Ur Specific [place] >= 1.030, Urine Protein >=300 H, Urine Glucose (UA) 500 H, Urine Ketones Negative, Urine Blood Small H, Urine Nitrate Negative, Urine Bilirubin Negative, Urine Urobilinogen 0.2, Ur Leukocyte Esterase Negative, Urine RBC 1 - 3, Urine WBC 0 - 2, Ur Epithelial Cells 1 - 3, Urine Bacteria Few 05/06/17 19:45: Sodium 131 L, Potassium 4.2, Chloride 101, Carbon Dioxide 24, Anion Gap 10, BUN 25 H, Creatinine 1.5 H, Est GFR ( Amer) 46, Est GFR ( Non-Af Amer) 38, Random Glucose 249 H, Calcium 8.9, Total Bilirubin 0.3, AST 21 , ALT 39, Alkaline Phosphatase 92, Total Protein 6.7, Albumin 3.2, Globulin 3.5 , Albumin/Globulin Ratio 0.9 L, Lipase 554 H 05/06/17 19:45: PT 11.1, INR 0.97, APTT 29.1 05/06/17 19:45: WBC 10.6 D, RBC 4.10, Hgb 12.3, Hct 36.9, MCV 90.0, MCH 30.0, MCHC 33.3, RDW 13.6, Plt Count 264, MPV 11.6 H, Gran % 64.9, Lymph % (Auto) 28.9 , [place] % (Auto) 4.0, Eos % (Auto) 2.1, Baso % (Auto) 0.1, Gran # 6.87 H, Lymph # 3.1, [place] # 0.4, Eos # 0.2, Baso # 0.01 - RAD Interpretation Radiology Orders: 05/06/17 22:07 ABD PELVIS PO & IV CONTRAST [CT] Stat - Medication Orders Current Medication Orders: Discontinued Medications Famotidine (Pepcid) 20 mg IVP STAT STA Stop: 05/06/17 19:29 Last Admin: 05/06/17 20:41 Dose: 20 mg IVP Administration Document 05/06/17 20:41 RG (Rec: 05/06/17 20:42 RG [id number]) Charges for Administration # of IVP Administrations 1 Sodium Chloride (Sodium Chloride 0.9%) 1,000 mls @ 1,000 mls/hr IV .Q1H STA Stop: 05/06/17 20:27 Last Admin: 05/06/17 19:52 Dose: 1,000 mls/hr eMAR Start Stop Document 05/06/17 19:52 EQ (Rec: 05/06/17 19:52 EQ [facility] [id number]) Intravenous Solution Start Date 05/06/17 Start Time 19:52 Morphine Sulfate (Morphine) 4 mg IVP STAT STA Stop: 05/06/17 19:29 Last Admin: 05/06/17 20:40 Dose: 4 mg MAR Pain Assessment Document 05/06/17 20:40 RG (Rec: 05/06/17 20:41 RG [id number]) Pain Reassessment Is this a pain reassessment? Yes Location Pain Location Body Site Abdomen Description Description Constant Intensity of Pain at present 7 IVP Administration Document 05/06/17 20:40 RG (Rec: 05/06/17 20:41 RG [id number]) Charges for Administration # of IVP Administrations 1 Morphine Sulfate (Morphine) 2 mg IVP STAT STA Stop: 05/07/17 01:31 Last Admin: 05/07/17 01:46 Dose: 2 mg MAR Pain Assessment Document 05/07/17 01:46 [email or web address] (Rec: 05/07/17 01:47 [email or web address] [facility] [id number] Pain Reassessment Is this a pain reassessment? No Sleep Is patient sleeping during reassessment? No Presence of Pain Presence of Pain Yes Pain Scale Used Pain Scale Used Numeric Location Pain Location Body Site Abdomen Description Description Constant Intensity of Pain at present 7 Pain Behavior Facial Grimacing Aggravating Factors Changing Position Alleviating Factors/Management Position Change Techniques Alleviating Factors Medication IVP Administration Document 05/07/17 01:46 [email or web address] (Rec: 05/07/17 01:47 [email or web address] [facility] [id number] Charges for Administration # of IVP Administrations 1 Ondansetron HCl (Zofran Inj) 4 mg IVP STAT STA Stop: 05/06/17 19:29 Last Admin: 05/06/17 19:52 Dose: 4 mg IVP Administration Document 05/06/17 19:52 EQ (Rec: 05/06/17 19:52 EQ [facility] [id number]) Charges for Administration # of IVP Administrations 1 Disposition/Present on Arrival - Present on Arrival Any Indicators Present on Arrival: No History of DVT/PE: No History of Uncontrolled Diabetes: No Urinary Catheter: No History of Decub. Ulcer: No History Surgical Site Infection Following: None - Disposition Have Diagnosis and Disposition been Completed?: Yes Diagnosis: Abdominal pain Disposition: HOME/ ROUTINE Disposition Time: 14:00 Patient Plan: Discharge Patient Problems: Current Active Problems Problem Status Onset Abdominal pain Acute Condition: STABLE Discharge Instructions (ExitCare): Abdominal Pain (ED) Additional Instructions: Follow up with your doctor Return to ED for any new or worsening symptoms Referrals: Rhonda Ta MD [Primary Care Provider] - Follow up with primary Forms: [employer] (Polish)
[2017-05-06 20:07] LABS: BASO # 0.01 K/mm3 (0.0-2.0); BASO % 0.1 % (0.0-3.0); EOS # 0.2 (0.0-0.7); EOS % 2.1 % (1.5-5.0); GRAN # 6.87 (1.4-6.5); GRAN % 64.9 % (50.0-68.0); HEMOGLOBIN 12.3 g/dL (12.0-16.0); LYMPH # 3.1 (1.2-3.4); LYMPH % 28.9 % (22.0-35.0); MEAN CORPUSCULAR HGB CONC 33.3 g/dl (31.0-37.0); MEAN PLATELET VOLUME 11.6 fl (7.0-11.0); MONO # 0.4 (0.1-0.6); RBC 4.1 10^6/uL (3.5-6.1); RED CELL DISTRIBUTION WIDTH 13.6 % (11.5-14.5); WHITE BLOOD COUNT 10.6 10^3/ul (4.5-11.0)
[2017-05-06 20:14] LABS: INR 0.97 (0.93-1.08); PARTIAL THROMBOPLASTIN TIME 29.1 Seconds (25.1-36.5); PROTHROMBIN TIME 11.1 SECONDS (9.4-12.5)
[2017-05-06 20:17] LABS: ALB/GLOB RATIO 0.9 (1.1-1.8); ALBUMIN 3.2 g/dL (3.0-4.8); CALCIUM 8.9 mg/dL (8.4-10.5)
[2017-05-06 20:48] LABS: URINE BILIRUBIN NEGATIVE (NEGATIVE); URINE BLOOD SMALL (NEGATIVE); URINE GLUCOSE (UA) 500 mg/dL (NEGATIVE); URINE LEUKOCYTE ESTERASE NEGATIVE Leu/uL (NEGATIVE); URINE NITRATE NEGATIVE (NEGATIVE); URINE PROTEIN >=300 mg/dL (<30 mg/dL); URINE UROBILINOGEN 0.2 E.U./dL (<1 E.U./dL)
[2017-05-06 20:52] LABS: URINE APPEARANCE SL CLOUDY (CLEAR); URINE COLOR YELLOW (YELLOW)
[2017-05-06 21:00] LABS: URINE BACTERIA FEW (NEG); URINE WBC 0 - 2 /hpf (0-6)
[2017-05-06] MEDS ORDERED: Iohexol 240 (50 ml) ONE (22:11)
[2017-05-07] MEDS ORDERED: Iodixanol 320 MG/ML 100 ML BOTTLE IV ONE (00:17)
[2017-05-07] MEDS ORDERED: Morphine 2 mg/ml ISec IVP STA (01:30)
--- NOTE | 2017-05-07 01:54 | CT ---
EXAM: CT Abdomen and Pelvis With Intravenous Contrast CLINICAL HISTORY: 42 years old, female; Pain; Abdominal pain; Generalized; Prior surgery; Surgery date: 6+ months; Surgery type: C section, gastric bypass; Additional info: Lower abdominal pain TECHNIQUE: Axial computed tomography images of the abdomen and pelvis with intravenous contrast. All CT scans at this facility use one or more dose reduction techniques, viz.: automated exposure control; ma/kV adjustment per patient size (including targeted exams where dose is matched to indication; i.e. head); or iterative reconstruction technique. Coronal and sagittal reformatted images were created and reviewed. CONTRAST: 96 mL of visi 320 administered intravenously. COMPARISON: No relevant prior studies available. FINDINGS: Lower thorax: Minimal atelectasis/scarring. ABDOMEN: Liver: Unremarkable. No mass. Gallbladder and bile ducts: Calcified gallstone. No significant ductal dilation. Pancreas: No ductal dilation. No mass. Spleen: No splenomegaly. Adrenals: Myelolipoma of LEFT adrenal gland. Kidneys and ureters: No mass. No hydronephrosis. Stomach and bowel: Gastric banding. No definite mural thickening. No obstruction. Appendix: Normal caliber. No inflammation. PELVIS: Bladder: Unremarkable. Reproductive: 4.4 x 4.0 x 3.6 cm heterogeneous lesion within RIGHT adnexal region. ABDOMEN and PELVIS: Intraperitoneal space: No significant fluid collection. No free air. Bones/joints: Degenerative changes of hip joints. No acute fracture. Soft tissues: Unremarkable. Vasculature: Unremarkable. No aneurysm. Lymph nodes: No pathologically enlarged lymph nodes. IMPRESSION: 1. Right adnexal lesion, indeterminate. Recommend ultrasound. 2. Incidental/non-acute findings are described above.
[2017-05-07 02:09] VITALS: BP 131/89; PULSE 89; TEMP 98.9
[2017-05-07 02:10] VITALS: RESP 18; O2SAT 99
== END 2017-05-07 02:10 | disposition home or self-care (01) ==
LOC: ED 18:40
DX: R10.30 Lower abdominal pain, unspecified (principal); E11.9 Type 2 diabetes mellitus without complications; I10 Essential (primary) hypertension; Z98.84 Bariatric surgery status
CPT/HCPCS: 74177; 80053; 81001; 83690; 85025; 85610; 85730; 96374; 96375; 96376; 99283; J2270; J2405; J7040; Q9966; Q9967